=== PATIENT | male | born 1960 | race Caucasian/White ===

== ENCOUNTER → 2018-11-07 | Outpatient (CLI) | payer OTHER, BC ==
[~2018-11-07] VITALS: Ht 188 cm; Wt 119.0 kg
[~2018-11-07] MED LIST: AMBIEN 10 MG TA10 MG PO; ANDROGEL1.25 GM TD; CHLORPROMAZINE10 M1 PO; CRESTOR10 MG PO; EXCEDRIN CAPLE1 EACH PO; FENTANYL PA50 MCG/HR TP; FLEXERIL PO; HYDROCODONE-AP1 EAC6 PO; IBUPROFEN 200200 M1 PO; IBUPROFEN 800800 M1; LOTREL 10-40 M1 EACH PO; LOTREL 5-40 MG1 EACH PO; METHYLPHENIDATE30 MG PO; MULTI VITAMIN1 EACH PO; NABUMETONE 750750 M1 PO; NORCO 5-325 TA1 EACH PO; OXYCODONE HCL 55 MG PO; OXYCODONE HCL10 MG PO; PRILOSEC20 MG PO; VOLTAREN GEL 1100 G2 TOP; ZANAFLEX4 MG PO
--- NOTE | ~2018-11-07 | HPC ---
[facility] [place] [address] PAIN MANAGEMENT CONSULTATION Name: WAYNE ZURITA Room #: REG MALLORIE MayoKelseyBelkis#: [id number] Admission: 11/07/18 Attend Phys: Mansoor Merrill MD Discharge: Date of : 58 Report #: [id number] THIS REPORT FOR: //name// CC: Harriet Merrill DATE OF SERVICE: 11/07/2018 This is my first visit with the patient. CHIEF COMPLAINT: History of low back pain and weakness in the left leg. HISTORY OF PRESENT ILLNESS: The patient is a 58-year-old gentleman who has been referred to the Pain Clinic for evaluation. The patient states that he has had problems with his back in the past. He underwent epidural steroid injection in 2013. Also, he had epidural steroid injections in 2016. He did note incremental improvement from his baseline pain with those treatments. He notes that he is having pain in the low back area with pain radiating down into his left foot. He feels that there is an electric pulsation down into his leg and into his foot with numbness. He rates it as a 3 while sitting, rises to 11 towards the end of the day. Walking, standing, kneeling, bending, and lifting, all exacerbate his discomfort. Notes that the pain is somewhat helped with medications as well as with sitting. He has done low back stretches with physical therapy. States that he is walking as well. In the past, he has walked a number of miles back in 2016 up to 53 miles in 40 weeks. Over the last 2-3 months, he has noted a slow incremental increase in pain with weakness along the left side. He has not had back surgery. PAST MEDICAL HISTORY: Hypertension, coronary atherosclerosis with related left bundle branch block, history of systemic hypertension, and colon problems. PAST SURGICAL HISTORY: Cyst removal from head and neck. ALLERGIES: LIPITOR. MEDICATIONS: Voltaren gel 1% 4 times daily as needed to the upper extremity, ibuprofen 200 mg, Advil q. 4 hours p.r.n., OxyIR 5 mg 2 daily via primary care physician, tizanidine 4 mg t.i.d., amlodipine/benazepril 10/40, Prilosec 20 mg, aspirin, Excedrin caplets p.r.n. headache, testosterone 1.25 grams gel, Ambien 10 mg, calcium, Crestor 10 mg. SOCIAL HISTORY: He is a plant maintenance manager. REVIEW OF SYSTEMS: Generally good health. Decreased appetite, fatigue, weakness, headaches, hearing loss, chronic sinus problems, mouth sores, loss of appetite, nausea, recurrent headaches, numbness and tingling, insomnia, [facility] [address] [place] [address] PAIN MANAGEMENT CONSULTATION Name: WAYNE ZURITA Room #: REG MALLORIE Tariq#: [id number] Admission: 11/07/18 Attend Phys: Mansoor Merrill MD Discharge: Date of : 58 Report #: [id number] excessive thirst. LABORATORY AND DIAGNOSTIC DATA: Lumbar spine examination dated 12/19/2013, findings view of the lumbar spine demonstrate 5 [id number] lumbaralized vertebral bodies. No acute fractures, subluxations or osseous destruction. There is minimal anterolisthesis of the L5, possibly 1-2 mm. There is mild disk space narrowing at L1-L2, L2-L3, and L5-S1. Facet sclerosis is mild. Transverse process fracture is not identified. There is mild sclerosis of the SI joints. There is an equivocal 2 mm density underlying the left kidney, this could represent a calculus. Cardiac report dated 02/2000 reveals cardiac catheterization, normal left ventricular function identified with no more than 30% lesion at the determination of the first third of the left anterior descending coronary artery and a left coronary artery dominant system, a somewhat higher high-grade disease with a 60-70% lesion noted in the mid portion of a small right coronary artery, which supplies little, if any, to left ventricular myocardium. Final diagnoses: 1. Coronary artery atherosclerosis. 2. Rate related left bundle branch block. 3. History of systemic hypertension PAIN CLINIC ASSESSMENT AND PQRS: 1. Osteoarthritis: The patient is not being treated for osteoarthritis or rheumatoid arthritis. 2. Height 6 feet 2 inches, weight 262 pounds, BMI is 33.7. 3. Vital signs: Blood pressure 154/87, pulse 93, respiratory rate 16, room air saturation 96%. 4. Pain intensity: 3 while sitting, 8 in the evening at the end of the day. 5. Fall risk: The patient has not fallen in the last 3 months. 6. Blood thinner: The patient is not on a blood thinning medication. 7. Hypertension: The patient is being treated for hypertension. 8. Opioids greater than 6 weeks. 9. Risk assessment tool: Low for opioids. 10. Functional assessment tool. 11. Recreational drug use: The patient denies any recreational drugs. 12. Tobacco: The patient has never smoked. 13. Alcohol: The patient denies use of alcoholic beverages other than about 2 per week. PHYSICAL EXAMINATION: GENERAL: The patient is a well-developed, well-nourished, white male. Appears his stated age. He is alert and oriented x 3. His affect is appropriate. Speech is fluent. HEENT: Normocephalic, atraumatic. Extraocular eye muscles intact. Sclerae [address] [place] [address] PAIN MANAGEMENT CONSULTATION Name: WAYNE ZURITA Room #: REG [facility]up[facility].#: [id number] Admission: 11/07/18 Attend Phys: Mansoor Merrill MD Discharge: Date of : 58 Report #: [id number] nonicteric. Mucous membranes are moist. NECK: Without adenopathy or JVD. HEART: Regular rate without murmur. ABDOMEN: Nontender. Bowel sounds present. MUSCULOSKELETAL: Upper extremity muscle strength is judged to be 5/5 for the major muscle groups in the upper extremity. The patient is without significant scoliosis, kyphosis or lordosis. The patient has pain and discomfort and forward-bending to about 90 degrees caused some low back discomfort. Left and right rotation were not very problematic. Left and right lateral bending were not very problematic. Lumbar extension was not very problematic. The patient does have pain and discomfort on the left side. He notes that there is pain that is radiating down into the left L4-L5 dermatomal distribution with sensory changes and muscle weakness. The patient elects to proceed with an epidural steroid injection. Risks and benefits of the procedure were discussed. They could include but are not limited to infection, worsening of pain, no improvement in pain, bleeding, and the patient elects to proceed. IMPRESSION: 1. Lumbar radiculopathy at L4-L5 dermatomal distribution. 2. Hypertension. 3. Coronary atherosclerosis with related left bundle branch block. 4. History of systemic hypertension. 5. Colon problems RECOMMENDATIONS: We discussed treatment options with the patient. Risks and benefits of an epidural steroid injection were discussed. They include but are not limited to infection, worsening pain, no improvement in pain, nerve damage with paralysis, and the patient elects to proceed. PROCEDURE NOTE: The patient was taken to the procedure area. He was assisted in getting on the examination table. Fluoroscopy using anterior and posterior as well as lateral viewing were implemented. A 17-gauge Tuohy with loss of resistance technique was placed in the left L4-L5 interspace in the left lateral area. This area had been infiltrated with 0.25% bupivacaine with a 25-gauge needle to numb it. A pillow had been placed on the patient's abdomen to bolster and improve positioning. A total of 80 mg Depo-Medrol, 40 mg triamcinolone, and 2 mL of 0.25% bupivacaine was injected. The patient's pain decreased from 3 to 0 at the time of discharge. Total of 11 [place] [address] PAIN MANAGEMENT CONSULTATION Name: WAYNE ZURITA Room #: REG MALLORIE LedesmaBelkis#: [id number] Admission: 11/07/18 Attend Phys: Mansoor Merrill MD Discharge: Date of : 58 Report #: [id number] We would like to thank you for letting us participate in his care. We hope he continues to improve. By: [id number] Mansoor Merrill MD /hector
[2018-11-07 10:19] VITALS: BP 154/87
--- NOTE | 2018-11-07 10:30 | NUR ---
Pain Clinic Assessment: 1. History of Osteoarthritis: History of Rheumatoid Arthritis: 2. Height: 6 ft. 2 in. 188.0 cm. Weight: 262.4 lb. oz. 119.024 kg. Patient's BMI: 33.7 3. Vital Signs: BP: 154/87 Pulse: 93 Resp: 16 Temp: 02 Sat: 96 ECG Mon: 4. Pain Intensity: 3 SITTING, 8 EVENING 5. Fall Risk: Dizziness: N Needs help standing or walking: N Fallen in the last 3 months: N Fall risk comments: 6. Patient on Blood Thinner: None 7. History of Hypertension: N 8. Opioid Therapy greater than 6 weeks: Y Opiate Contract Signed: 9. Risk Assessment Tool Provided: LOW 10. Functional Assessment Tool: 11. Recreational Drug Use: Never Drug Type: Tobacco Use: Never Smoker Tobacco Type: Amount or Packs/day: How Many Years: Alcohol Use: No Frequency: Quant:
== END | disposition home or self-care (01) ==
LOC: PAIN 07:01
DX: M51.16 Intervertebral disc disorders with radiculopathy, lumbar region (principal); I10 Essential (primary) hypertension; I25.10 Atherosclerotic heart disease of native coronary artery without angina pectoris; I44.7 Left bundle-branch block, unspecified; Z98.890 Other specified postprocedural states; Z79.899 Other long term (current) drug therapy; Z79.82 Long term (current) use of aspirin; M43.16 Spondylolisthesis, lumbar region; G95.89 Other specified diseases of spinal cord

== ENCOUNTER → 2019-01-09 | Outpatient (CLI) | payer OTHER, BC ==
[~2019-01-09] VITALS: Ht 188 cm; Wt 116.5 kg
--- NOTE | ~2019-01-09 | HPC ---
[facility] [address] [place] [address] PAIN MANAGEMENT CONSULTATION Name: WAYNE ZURITA Room #: REG Nicolle Baltazar.#: [id number] Admission: 01/09/19 ������������������ Attend Phys: Mansoor Merrill MD Discharge: ������������������ Date of : 58 Report #: [id number] THIS REPORT FOR: //name// CC: Harriet Merrill DATE OF SERVICE: 01/09/2019 CHIEF COMPLAINT: "Here for another injection. It was helpful." HISTORY: The patient is a 58-year-old gentleman who has been followed in the Pain Clinic because of lumbar radiculopathy. He underwent an epidural steroid injection in 2013, in 2016, and gleaned benefits from these. He recently underwent an epidural steroid injection in the Pain Clinic. He noticed benefit from that. He has returned today with the thought of undergoing another epidural steroid injection to help control the pain and discomfort that he is experiencing. He describes it as tingling, sharp, aching, and has some numbness. Pain is exacerbated with walking, standing, kneeling, bending and lifting. He denies any bowel or bladder dysfunction. Denies any saddle numbness or tingling. He has had electrical pulsations down into his foot with numbness and that is less problematic now. ALLERGIES: LIPITOR. CURRENT MEDICATIONS: Voltaren gel 1% four times daily as needed to the upper extremity, ibuprofen 200 mg, Advil 4 mg p.r.n., OxyIR 5 mg two daily via primary care physician, tizanidine 4 mg t.i.d., amlodipine/ benazepril 10/40, Prilosec 20 mg, aspirin, Excedrin caplets p.r.n. headache, testosterone 1.25 grams gel, Ambien 10 mg, calcium, Crestor 10 mg. PAIN CLINIC ASSESSMENT/PQRS: 1. The patient is not being treated for rheumatoid arthritis or osteoarthritis. 2. Height 6 feet 2 inches, weight 256 pounds, BMI is 33. 3. Vital signs: Blood pressure 136/88, pulse is 80, respiratory rate 20, room air saturation 98%. 4. Pain intensity: 3/10 with sitting and 7/10 by onset of evening. 5. Fall history: The patient has not fallen in the last 3 months. 6. Blood thinner: The patient is not on a blood thinning medication. 7. Hypertension: The patient is not being treated for hypertension. 8. Opioids greater than 6 weeks: The patient receives medications from his primary. 9. Risk assessment tool: Low for opioid use. 10. Functional assessment tool. 11. Recreational drug use: The patient denies. 12. Tobacco: ____ use of tobacco. 13. Alcohol: The patient denies use of alcoholic beverages. [facility] [address] [place] [address] PAIN MANAGEMENT CONSULTATION Name: WAYNE ZURITA Room #: REG CL Chandni#: [id number] Admission: 01/09/19 ������������������ Attend Phys: Mansoor Merrill MD Discharge: ������������������ Date of : 58 Report #: [id number] PHYSICAL EXAMINATION: GENERAL: The patient is a well-developed, well-nourished white male. He appears his stated age. He is alert and oriented x 3. Affect is appropriate. Speech is fluent. HEENT: Normocephalic, atraumatic. Extraocular eye muscles intact. Sclerae nonicteric. Mucous membranes are moist. NECK: Without adenopathy or JVD. MUSCULOSKELETAL: Without significant scoliosis, kyphosis, or lordosis. Upper extremity muscle strength 5/5. The patient has pain and discomfort in the lower portion of his back. The pain is radiating down at the L4-L5 dermatomal distribution with sensory changes and muscle weakness. He would like to proceed with an epidural steroid injection. IMPRESSION: 1. Lumbar radiculopathy, L4-L5 dermatomal distribution. 2. Hypertension. 3. Coronary atherosclerotic disease with left bundle-branch block. 4. History of systemic hypertension. 5. Colon problems. RECOMMENDATIONS: We discussed treatment options with the patient. Risks and benefits of an epidural steroid injection were again reviewed. Possible complications of the procedure which could include but are not limited to infection, worsening of pain, no improvement in pain, nerve damage, paralysis were reviewed, and the patient elects to proceed. PROCEDURE NOTE: The patient was taken to the procedure area. He was assisted in getting on the examination table. A pillow was placed under his abdomen to bolster and improve positioning. Fluoroscopy using anterior, posterior as well as lateral viewing implemented. The patient's back was sterilely prepped at the L4-L5 area. A 0.25% bupivacaine was infiltrated using a 25-gauge needle. After this area had been numbed, a 17-gauge Tuohy with loss of resistance technique was used to gain access to the epidural space. There was no CSF, heme or paresthesia. A total of 80 mg Depo-Medrol, 40 mg triamcinolone and 2 mL of 0.25% bupivacaine was injected. The patient tolerated the procedure well. There were no complications. He remained in the Pain Clinic for an appropriate amount of time. His pain decreased to 2-3 at the time of discharge. A total of 12 seconds fluoroscopy time was used. We would like to thank you for letting us participate in his care. We hope he continues to improve. ��������������������������������������������� ���������������������������������������� By: ��������������������������������������������� [id number] Mansoor Merrill MD /hector
[2019-01-09 08:11] VITALS: BP 136/88
--- NOTE | 2019-01-09 08:19 | NUR ---
Pain Clinic Assessment: 1. History of Osteoarthritis: History of Rheumatoid Arthritis: 2. Height: 6 ft. 2 in. 188.0 cm. Weight: 256.8 lb. oz. 116.484 kg. Patient's BMI: 33.0 3. Vital Signs: BP: 136/88 Pulse: 80 Resp: 20 Temp: 02 Sat: 98 ECG Mon: 4. Pain Intensity: 3 SITTING, 7 EVENING 5. Fall Risk: Dizziness: N Needs help standing or walking: N Fallen in the last 3 months: N Fall risk comments: 6. Patient on Blood Thinner: None 7. History of Hypertension: N 8. Opioid Therapy greater than 6 weeks: N Opiate Contract Signed: 9. Risk Assessment Tool Provided: LOW 10. Functional Assessment Tool: 11. Recreational Drug Use: Never Drug Type: Tobacco Use: Never Smoker Tobacco Type: Amount or Packs/day: How Many Years: Alcohol Use: No Frequency: Quant:
== END | disposition home or self-care (01) ==
LOC: PAIN 06:50
DX: M54.16 Radiculopathy, lumbar region (principal); G89.29 Other chronic pain; I10 Essential (primary) hypertension; I25.10 Atherosclerotic heart disease of native coronary artery without angina pectoris; Z87.19 Personal history of other diseases of the digestive system; Z88.8 Allergy status to other drugs, medicaments and biological substances; Z79.82 Long term (current) use of aspirin; Z79.899 Other long term (current) drug therapy; Z98.890 Other specified postprocedural states; Z79.891 Long term (current) use of opiate analgesic

== ENCOUNTER → 2019-02-20 | Outpatient (CLI) | payer OTHER, BC ==
[~2019-02-20] VITALS: Ht 188 cm; Wt 114.9 kg
[2019-02-20 08:17] VITALS: BP 133/80
--- NOTE | 2019-02-20 08:19 | NUR ---
Pain Clinic Assessment: 1. History of Osteoarthritis: History of Rheumatoid Arthritis: 2. Height: 6 ft. 2 in. 188.0 cm. Weight: 253.4 lb. oz. 114.942 kg. Patient's BMI: 32.5 3. Vital Signs: BP: 133/80 Pulse: 88 Resp: 16 Temp: 02 Sat: 97 ECG Mon: 4. Pain Intensity: 2 5. Fall Risk: Dizziness: N Needs help standing or walking: N Fallen in the last 3 months: N Fall risk comments: 6. Patient on Blood Thinner: None 7. History of Hypertension: N 8. Opioid Therapy greater than 6 weeks: N Opiate Contract Signed: 9. Risk Assessment Tool Provided: LOW 10. Functional Assessment Tool: 11. Recreational Drug Use: Never Drug Type: Tobacco Use: Never Smoker Tobacco Type: Amount or Packs/day: How Many Years: Alcohol Use: Yes Frequency: Special Occasions Quant:
--- NOTE | 2019-02-22 16:10 | HPC ---
[facility] [place] [address] [address] [place] [address] PAIN MANAGEMENT CONSULTATION Name: WAYNE ZURITA Room #: REG MALLORIE LedesmaBelkis#: [id number] Admission: 02/20/19 ������������������ Attend Phys: Mansoor Merrill MD Discharge: ������������������ Date of : 58 Report #: [id number] THIS REPORT FOR: //name// CC: Harriet Merrill DATE OF SERVICE: 02/20/2019 PRIMARY CARE PHYSICIAN: Dr. Harriet Antonio. CHIEF COMPLAINT: "Back and leg pain. I would like to get another epidural steroid injection." HISTORY: The patient is a 58-year-old gentleman who has been seen in the pain clinic because of lumbar radiculopathy. He has undergone an epidural steroid injection. He gleaned greater than 50% improvement. He feels that the pain in December was primarily in the anterior portion of his leg. The injection in the L5/L4 area was helpful with that pain that is diminished significantly. He now notes a worsening of the pain in the sciatic area. Pain radiating down into his leg is more problematic. Notes that when he stands or does activities, there is an increased pain and discomfort in the L5-S1 area. Notes that he is experiencing some numbness after sitting. He has returned today with a desire to undergo an epidural steroid injection to help continue to quell the pain, which he has been experiencing. ALLERGIES: LIPITOR. CURRENT MEDICATIONS: Voltaren gel 1% 4 times daily as needed to the upper extremity. Ibuprofen 200 mg, Advil 400 mg p.r.n., OxyIR 5 mg 2 tablets daily provided via the primary care physician. Tizanidine 4 mg t.i.d., amlodipine/benazepril 10/40, Prilosec 20 mg, aspirin, Excedrin caplets p.r.n., this is used for headaches, testosterone 1.25 g gel, Ambien 10 mg, calcium, and Crestor 10 mg. PAIN CLINIC ASSESSMENT/PQRS: 1. The patient is not being treated for rheumatoid arthritis. He has not been treated for osteoarthritis. 2. Height 6 feet 2 inches, weight 253 pounds, BMI is 32.5. 3. VITAL SIGNS: Blood pressure 133/80, pulse 88, respiratory rate 16, room air saturation is 97%. 4. Pain intensity 11/04. 5. Fall history: The patient has not fallen in the last 3 months. 6. Blood thinner. The patient is not on a blood thinning medication. 7. Hypertension. The patient is not being treated for hypertension. 8. Opioids. The patient is receiving his medications from one source, primary physician. [address] [address] PAIN MANAGEMENT CONSULTATION Name: PARMINDERWAYNE MARIA M Room #: REG MALLORIE Tariq#: [id number] Admission: 02/20/19 ������������������ Attend Phys: Mansoor Merrill MD Discharge: ������������������ Date of : 58 Report #: [id number] 9. Risk assessment tool, low for opioid use. 10. Functional assessment tool. 11. Recreational drug use. The patient denies use of recreational drugs. 12. Tobacco: The patient has never smoked. 13. Alcohol: The patient occasionally drinks alcoholic beverages. PHYSICAL EXAMINATION: GENERAL: The patient is a well-developed, well-nourished white male. Appears his stated age. He is alert and oriented x 3. Affect is appropriate. Speech is fluent. HEENT: Normocephalic, atraumatic. Extraocular eye muscles intact. Sclerae nonicteric. Mucous membranes are moist. NECK: Without adenopathy or JVD. HEART: Regular rate. ABDOMEN: Nontender. Bowel sounds present. EXTREMITIES: The patient without significant scoliosis, kyphosis or lordosis. Upper extremity muscle strength judged to be 5/5 for the major muscle groups in the upper extremity. Lower extremity, the patient has pain and discomfort radiating down in the L5-S1 dermatomal distribution. Did have pain that radiated down in the L4-L5 dermatomal distribution. This is improved about 90% since the last injection. The patient has some weakness and perception of sensory changes in the L5-S1 dermatomal distribution of the left and right leg. IMPRESSION: 1. Lumbar radiculopathy with L5-S1 dermatomal distribution with sensory changes perception of weakness and pain and tingling in this dermatomal distribution. 2. About 90% improvement in pain in the L4-L5 dermatomal distribution after the last epidural steroid injection. 3. Hypertension. 4. Coronary artery disease, left bundle branch block. 5. History of systemic hypertension. 6. Colon problems. RECOMMENDATIONS: We discussed treatment options with the patient. Risks and benefits of an epidural steroid injection were again discussed. At this juncture, the patient will return after he has been granted permission by precertification from his insurance. At that time, he will then undergo an epidural steroid injection in the L5-S1 area to help decrease the pain and discomfort, which is lingering with sensory changes, muscle weakness and pain in this dermatomal distribution. [facility] [address] [place] [address] PAIN MANAGEMENT CONSULTATION Name: WAYNE ZURITA Room #: REG MALLORIE Tariq#: [id number] Admission: 02/20/19 ������������������ Attend Phys: Mansoor Merrill MD Discharge: ������������������ Date of : 58 Report #: [id number] We would like to thank you for letting us participate in his care. We hope he continues to improve. ��������������������������������������������� <ELECTRONICALLY SIGNED> ���������������������������������������� By: Mansoor Merrill MD ��������������������������������������������� 02/22/19 1610 [id number] Mansoor Merrill MD /[facility]
== END ==
LOC: PAIN 06:42
DX: M54.16 Radiculopathy, lumbar region (principal); I25.10 Atherosclerotic heart disease of native coronary artery without angina pectoris; I44.7 Left bundle-branch block, unspecified

== ENCOUNTER → 2019-02-27 | Outpatient (CLI) | payer OTHER, BC ==
[~2019-02-27] VITALS: Ht 188 cm; Wt 114.8 kg
--- NOTE | ~2019-02-27 | HPC ---
[facility] [place] [address] PAIN MANAGEMENT CONSULTATION Name: WAYNE ZURITA Room #: REG MALLORIE Baltazar.#: [id number] Admission: 02/27/19 ������������������ Attend Phys: Mansoor Merrill MD Discharge: ������������������ Date of : 58 Report #: [id number] THIS REPORT FOR: //name// CC: Harriet Merrill DATE OF SERVICE: 02/27/2019 FOLLOWUP COMPLAINT: Back and leg pain. HISTORY: The patient is a 58-year-old gentleman, who has been seen in the pain clinic. He suffers from lumbar radiculopathy. Epidural steroid injections in the past have been beneficial. He is now having pain that has worsened. It continues to radiate down into his low back and involving particularly the left leg. It involves his back of the left leg and in the area there is tingling, sharp, aching discomfort with numbness. He rates it as a 3/10. Walking, standing, kneeling, bending, and lifting exacerbate the discomfort. He feels that use of medications as well as sitting are helpful. He has returned to the pain clinic today with a desire to undergo an epidural injection. CURRENT MEDICATIONS: Voltaren gel 1% 4 times daily to the upper extremity, ibuprofen 200 mg, Advil 400 mg p.r.n., OxyIR 5 mg 2 tablets daily, tizanidine 4 mg t.i.d., amlodipine/benazepril 10/40, Prilosec 20 mg, aspirin 81 mg, Excedrin caplets for headache, testosterone 1.25 grams gel, Ambien 10 mg, calcium, and Crestor 10 mg. ALLERGIES: LIPITOR. PAIN CLINIC ASSESSMENT AND PQRS: 1. The patient is not being treated for rheumatoid arthritis. He has not been treated for osteoarthritis. 2. Pain intensity is 3/10. 3. Fall history: The patient has not fallen in the last 3 months. 4. Blood thinner. The patient is not being treated with a blood thinning medication. 5. Hypertension. The patient is not being treated for hypertension. 6. Opioids greater than 6 weeks. The patient is not receiving opioid medication on a long-term basis. 7. Risk assessment tool, low for opioid use. 8. Functional assessment tool. 9. Recreational drug use. The patient denies. 10. Tobacco: The patient has never smoked. 11. Alcohol: The patient occasionally drinks an alcoholic beverage. PHYSICAL EXAMINATION: GENERAL: The patient is a well-developed, well-nourished [place] [address] PAIN MANAGEMENT CONSULTATION Name: WAYNE ZURITA Room #: REG [facility]#: [id number] Admission: 02/27/19 ������������������ Attend Phys: Mansoor Merrill MD Discharge: ������������������ Date of : 58 Report #: [id number] appears his stated age. He is alert and oriented x 3. His affect is appropriate. Speech is fluent. Height is 6 feet 2 inches, weight is 253 pounds, and BMI is 32.2. VITAL SIGNS: Blood pressure is 130/84, pulse is 90, respiratory rate is 14, and room air saturation is 97%. HEENT: Normocephalic, atraumatic. Extraocular eye muscles intact. Sclerae nonicteric. NECK: Without adenopathy or JVD. HEART: Regular rate. ABDOMEN: Nontender. Bowel sounds present. EXTREMITIES: Upper extremity muscle strength is judged to be 5/5 for the major muscle groups. The patient is without significant scoliosis, kyphosis, or lordosis. He complains of pain and discomfort, particularly in the low back area with pain that is radiating down in the L5-S1 dermatomal distribution, particularly on the left side and has a positive straight leg raise on the left. IMPRESSION: 1. Lumbar radiculopathy, L5-S1 dermatomal distribution with sensory changes, weakness, pain, and tingling in the dermatomal distribution. 2. The patient has undergone improvement in the L4-L5 dermatomal area with an epidural steroid injection. 3. Hypertension. 4. Coronary artery disease, left bundle branch block. 5. History of hypertension. 6. Colon problems. RECOMMENDATIONS: We have discussed treatment options with the patient. Risks and benefits of an epidural steroid injection were again discussed. They include but are not limited to infection, increased muscle soreness, headache, bleeding, worsening of pain, no improvement in pain, spinal trauma with paralysis. The patient elects to proceed. PROCEDURE NOTE: The patient was taken to the procedure area. He was then assisted in getting on the examination table. A pillow was placed under his abdomen to bolster and improve positioning. Anterior, posterior as well as lateral viewing were implemented. The patient's back was sterilely prepped with a Betadine solution at the L4-L5 area. A 0.25% of bupivacaine using a 25-gauge needle was then advanced in the midline approach near the directed toward the left paramedian area. Aspiration was negative. A 17-gauge Tuohy with loss of resistance technique was used to gain access to the epidural space. There was no CSF, heme, or paresthesia. A total of 80 mg of Depo-Medrol, 40 mg of triamcinolone, and 2 mL of 0.25% bupivacaine was injected. The patient tolerated the procedure well. There were no complications. He remained in the pain clinic for an appropriate amount of time after he had been injected. A total of approximately 10 seconds fluoroscopy time was used. The patient's pain score was 0 at the time of discharge. He will follow up in the future as [address] [address] PAIN MANAGEMENT CONSULTATION Name: PARMINDERWAYNE FRANZ Room #: REG [facility].#: [id number] Admission: 02/27/19 ������������������ Attend Phys: Mansoor Merrill MD Discharge: ������������������ Date of : 58 Report #: [id number] needed. We would like to thank you for letting us to participate in his care. We hope he continues to improve. ��������������������������������������������� ���������������������������������������� By: ��������������������������������������������� [id number] Mansoor Merrill MD /TIERRA
[2019-02-27 08:08] VITALS: BP 130/84
--- NOTE | 2019-02-27 08:09 | NUR ---
Pain Clinic Assessment: 1. History of Osteoarthritis: DENIES History of Rheumatoid Arthritis: DENIES 2. Height: 6 ft. 2 in. 188.0 cm. Weight: 253.0 lb. oz. 114.760 kg. Patient's BMI: 32.5 3. Vital Signs: BP: 130/84 Pulse: 90 Resp: 14 Temp: 02 Sat: 97 ECG Mon: 4. Pain Intensity: 3 5. Fall Risk: Dizziness: N Needs help standing or walking: N Fallen in the last 3 months: N Fall risk comments: 6. Patient on Blood Thinner: None 7. History of Hypertension: N 8. Opioid Therapy greater than 6 weeks: N Opiate Contract Signed: 9. Risk Assessment Tool Provided: LOW 10. Functional Assessment Tool: 11. Recreational Drug Use: Never Drug Type: Tobacco Use: Never Smoker Tobacco Type: Amount or Packs/day: How Many Years: Alcohol Use: Yes Frequency: Weekly Quant:
== END | disposition home or self-care (01) ==
LOC: PAIN 06:44
DX: M54.16 Radiculopathy, lumbar region (principal); G89.29 Other chronic pain; I10 Essential (primary) hypertension; I25.10 Atherosclerotic heart disease of native coronary artery without angina pectoris; K63.9 Disease of intestine, unspecified; Z79.82 Long term (current) use of aspirin; Z79.899 Other long term (current) drug therapy; Z98.890 Other specified postprocedural states; Z88.8 Allergy status to other drugs, medicaments and biological substances

== ENCOUNTER → 2019-03-22 | Outpatient (CLI) | payer OTHER, BC ==
[~2019-03-22] VITALS: Ht 188 cm; Wt 117.0 kg
--- NOTE | ~2019-03-22 | HPC ---
[facility] [address] [place] [address] PAIN MANAGEMENT CONSULTATION Name: WAYNE ZURITA Room #: REG MALLORIE Chandni#: [id number] Admission: 03/22/19 ������������������ Attend Phys: Mansoor Merrill MD Discharge: ������������������ Date of : 58 Report #: [id number] THIS REPORT FOR: //name// CC: Harriet Merrill DATE OF SERVICE: 03/22/2019 CHIEF COMPLAINT: "Here for medication renewal." HISTORY: The patient is a 58-year-old gentleman who has been followed in the pain clinic. As you recall, he suffers from lumbar radiculopathy. Epidural steroid injections have been beneficial. He underwent an epidural steroid injection at the last visit. He returns today indicating that his pain continues to be improved as a result of the injection. He continues to have some pain and discomfort. He would like to have his medications renewed. He is also here indicating that he would like to proceed at the earliest occasion with another epidural steroid injection. Continues to have some low back pain as well as pain down the left leg. Notes continued tingling, sharp sensation, aching with numbness. Rates it as a 3/10 today. Pain is exacerbated with walking, standing, kneeling, bending, lifting, feels his medications as well as sitting can be helpful. Had no complications from the last injection. ALLERGIES: LIPITOR. CURRENT MEDICATIONS: Voltaren gel 1% 4 times daily to the upper extremity, ibuprofen 200 mg, Advil 400 mg p.r.n., OxyIR 5 mg 2 tablets daily, tizanidine 4 mg t.i.d., amlodipine/benazepril 10/40, Prilosec 20 mg, aspirin 81 mg, Excedrin caplets for headache, testosterone 1.25 grams gel, Ambien 10 mg, calcium, Crestor 10 mg. PAIN CLINIC ASSESSMENT AND PQRS: 1. The patient is not being treated for rheumatoid arthritis. He is not being treated for osteoarthritis. 2. Pain intensity 12/02. 3. Fall history: The patient has not fallen since we saw him last. 4. Vital Signs: Blood pressure 129/79, pulse 82, respiratory rate 16, room air saturation 98%. 5. Pain intensity 12/02. 6. Fall history: The patient has not fallen since we saw him last. 7. Blood thinner. The patient is not on a blood thinning medication. 8. Hypertension. The patient is not being treated for hypertension. 9. Opioids greater than 6 weeks. He is receiving opioid medication. 10. Risk assessment tool: Low for opioid use. 11. Functional assessment tool. 12. Recreational drug use. The patient denies use of recreational drugs. [address] [address] PAIN MANAGEMENT CONSULTATION Name: PARMINDERWAYNE Room #: REG CLNicolle Tariq#: [id number] Admission: 03/22/19 ������������������ Attend Phys: Mansoor Merrill MD Discharge: ������������������ Date of : 58 Report #: [id number] 13. Tobacco: The patient has never smoked. 14. Alcohol: The patient occasionally drinks alcoholic beverages. PHYSICAL EXAMINATION: GENERAL: The patient is a well-developed, well-nourished white male. He appears his stated age. He is alert and oriented x 3. His affect is appropriate. Speech is fluent. HEENT: Normocephalic, atraumatic. Extraocular eye muscles intact. Sclerae nonicteric. Mucous membranes moist. NECK: Without adenopathy or JVD. HEART: Regular rate. ABDOMEN: Nontender. Bowel sounds present. EXTREMITIES: Upper extremity muscle strength judged to be 5/5 for the major muscle groups in the upper extremity. The patient was without significant scoliosis, kyphosis or lordosis. The patient complains of some pain and discomfort in the lower portion of his back with pain that is radiating down the L5-S1 dermatomal distribution, particularly on the left side. Has some ____ of a positive straight leg raise on the left. IMPRESSION: 1. Lumbar radiculopathy and history of L5-S1 dermatomal distribution and sensory changes with weakness and tingling. 2. The patient has undergone L4-L5 dermatomal epidural steroid injections with benefit. 3. Hypertension. 4. Coronary artery disease. 5. Left bundle branch block. 6. History of hypertension. 7. Colon problems. RECOMMENDATIONS: We discussed the treatment options with the patient. At this juncture, it appears that he would be able to undergo another epidural injection in about April. At this juncture, the patient would like to have his medications renewed in the interim. A script for OxyIR 5 mg p.o. q.i.d. have been written. We have discussed the problems with opioid medications. Long-term use of opioid medications can be less effective because of development of tolerance. We have also discussed the news and media findings of opioids. About 70,000 patients last year of overdose result of medications. We have explained to the patient that we will provide him with the medication. At this point, he should take it as prescribed. Hopefully, he will continue to improve. After his insurance precerted him, he will then return to the pain clinic at which time he will then undergo an epidural steroid injection. He has gleaned benefits from the injection in the past and found them beneficial. [address] [address] PAIN MANAGEMENT CONSULTATION Name: WAYNE ZURITA Room #: REG MALLORIE Tariq#: [id number] Admission: 03/22/19 ������������������ Attend Phys: Mansoor Merrill MD Discharge: ������������������ Date of : 58 Report #: [id number] We would like to thank you for letting us participate in his care. We hope he continues to improve. ��������������������������������������������� ���������������������������������������� By: ��������������������������������������������� [id number] Mansoor Merrill MD /PMT
[2019-03-22 08:18] VITALS: BP 129/79
--- NOTE | 2019-03-22 08:34 | NUR ---
Pain Clinic Assessment: 1. History of Osteoarthritis: DENIES History of Rheumatoid Arthritis: DENIES 2. Height: 6 ft. 2 in. 188.0 cm. Weight: 258.0 lb. oz. 117.028 kg. Patient's BMI: 33.1 3. Vital Signs: BP: 129/79 Pulse: 82 Resp: 16 Temp: 02 Sat: 98 ECG Mon: 4. Pain Intensity: 3 5. Fall Risk: Dizziness: N Needs help standing or walking: N Fallen in the last 3 months: N Fall risk comments: 6. Patient on Blood Thinner: None 7. History of Hypertension: N 8. Opioid Therapy greater than 6 weeks: N Opiate Contract Signed: 9. Risk Assessment Tool Provided: LOW 10. Functional Assessment Tool: 11. Recreational Drug Use: Never Drug Type: Tobacco Use: Never Smoker Tobacco Type: Amount or Packs/day: How Many Years: Alcohol Use: Yes Frequency: Special Occasions Quant:
== END ==
LOC: PAIN 06:45
DX: Z76.0 Encounter for issue of repeat prescription (principal); M54.16 Radiculopathy, lumbar region; I25.10 Atherosclerotic heart disease of native coronary artery without angina pectoris; Z88.8 Allergy status to other drugs, medicaments and biological substances; Z79.899 Other long term (current) drug therapy; Z79.891 Long term (current) use of opiate analgesic

== ENCOUNTER → 2019-05-17 | Outpatient (CLI) | payer OTHER, BC ==
[~2019-05-17] VITALS: Ht 188 cm; Wt 118.8 kg
--- NOTE | ~2019-05-17 | HPC ---
[facility] [place] [address] PAIN MANAGEMENT CONSULTATION Name: WAYNE ZURITA Room #: REG MALLORIE Chandni#: [id number] Admission: 05/17/19 Attend Phys: Mansoor Merrill MD Discharge: Date of : 58 Report #: [id number] THIS REPORT FOR: //name// CC: Harriet Merrill DATE OF SERVICE: 05/17/2019 CHIEF COMPLAINT: Here for another epidural steroid injection. They have been helpful. HISTORY: The patient is a 58-year-old gentleman who has been followed in the pain clinic because of chronic lumbar radicular pain. He has undergone epidural steroid injections and noticed improvement. He has returned today. His insurance company has granted him the ability to undergo another injection. The possible complications of the procedure were discussed. They could include infection, worsening of pain, no improvement in pain, bleeding, headache and the patient elects to proceed. ALLERGIES: LIPITOR. CURRENT MEDICATIONS: Voltaren gel 1% 4 times daily to the upper extremity, ibuprofen 200 mg, Advil 400 mg p.r.n., OxyIR 5 mg 2 tablets daily, tizanidine 4 mg t.i.d., amlodipine/benazepril 10/40, Prilosec 20 mg, aspirin 81 mg, Excedrin caplets for headache, testosterone 1.25 grams gel, Ambien 10 mg, calcium, and Crestor 10 mg. PAIN CLINIC ASSESSMENT AND PQRS: 1. The patient is not being treated for rheumatoid arthritis. He is not being treated for osteoarthritis. 2. Pain intensity is 3/10. 3. Height 6 feet 2 inches, weight 261 pounds, BMI is 33.1. 4. Vital signs: Blood pressure 140/84, pulse 79, respiratory rate 18, room air saturation is 100%. 5. Fall history: The patient has not fallen in the last 3 months. 6. Blood thinner. The patient is not on a blood thinning medication. 7. Hypertension. The patient is not being treated for hypertension. 8. Opioids greater than 6 weeks. The patient receives medications from one source. 9. Risk assessment tool, low for opioid use. 10. Functional assessment tool. 11. Recreational drug use. The patient denies. 12. Tobacco: The patient has never smoked. 13. Alcohol: The patient drinks 3-4 alcoholic beverages per week. PHYSICAL EXAMINATION: [facility] [address] [place] [address] PAIN MANAGEMENT CONSULTATION Name: WAYNE ZURITA Room #: REG MALLORIE LedesmaBelkis#: [id number] Admission: 05/17/19 Attend Phys: Mansoor Merrill MD Discharge: Date of : 58 Report #: [id number] GENERAL: The patient is a well-developed, well-nourished white male. Appears his stated age. He is alert and oriented x 3. His affect is appropriate. Speech is fluent. HEENT: Normocephalic, atraumatic. Extraocular eye muscles intact. Sclerae nonicteric. Mucous membranes are moist. NECK: Without adenopathy or JVD. MUSCULOSKELETAL: Upper extremity muscle strength judged to be 5/5 for the major muscle groups in the upper extremity. The patient without significant scoliosis, kyphosis, or lordosis. The patient has pain and discomfort in the lower portion of his back with pain that is radiating down into the L5-S1 dermatomal distribution on the left. Positive straight leg raise on the left. IMPRESSION: 1. Lumbar radiculopathy with history of L5-S1 dermatomal distribution and sensory changes with weakness and tingling. 2. History of L4-L5 dermatomal epidural injections with benefit in the past. 3. Hypertension. 4. Coronary artery disease. 5. Left bundle branch block. 6. History of hypertension. 7. Colon problems. RECOMMENDATIONS: We discussed treatment options with the patient. Risks and benefits of an epidural steroid injection were again reviewed. They include but are not limited to infection, worsening pain, no improvement in pain, worse being of muscle soreness. Possible nerve damage and the patient elects to proceed. PROCEDURE NOTE: The patient was taken to the procedure area. He was then assisted in getting on the examination table. His back was sterilely prepped with a Betadine solution. A pillow had been placed under the abdomen to bolster and improve positioning. Fluoroscopy using anterior and posterior viewing were undertaken. After the back, had been sterilely prepped with a Betadine solution. A 0.25% bupivacaine was infiltrated using a 25-gauge needle at the L5-S1 area using a midline approach. A 17-gauge Tuohy with loss of resistance technique was used to gain access to the epidural space after this area had been anesthetized. A left paramedian approach was undertaken. Aspiration was negative. A total of 80 mg Depo-Medrol, 40 mg triamcinolone and 2 mL of 0.25% bupivacaine was injected. The patient tolerated the procedure well. He remained in the pain clinic for an appropriate amount of time. He will follow up in the future as needed. [address] [address] PAIN MANAGEMENT CONSULTATION Name: WAYNE ZURITA Room #: REG MALLORIE LedesmaBelkis#: [id number] Admission: 05/17/19 Attend Phys: Mansoor Merrill MD Discharge: Date of : 58 Report #: [id number] We would like to thank you for letting us participate in his care. We hope he continues to improve. By: [id number] Mansoor Merrill MD /nt
[2019-05-17 08:03] VITALS: BP 140/84
--- NOTE | 2019-05-17 08:09 | NUR ---
Pain Clinic Assessment: 1. History of Osteoarthritis: DENIES History of Rheumatoid Arthritis: DENIES 2. Height: 6 ft. 2 in. 188.0 cm. Weight: 261.8 lb. oz. 118.752 kg. Patient's BMI: 33.6 3. Vital Signs: BP: 140/84 Pulse: 79 Resp: 18 Temp: 02 Sat: 100 ECG Mon: 4. Pain Intensity: 3 5. Fall Risk: Dizziness: N Needs help standing or walking: N Fallen in the last 3 months: N Fall risk comments: 6. Patient on Blood Thinner: None 7. History of Hypertension: N 8. Opioid Therapy greater than 6 weeks: N Opiate Contract Signed: 9. Risk Assessment Tool Provided: LOW 10. Functional Assessment Tool: 11. Recreational Drug Use: Never Drug Type: Tobacco Use: Never Smoker Tobacco Type: Amount or Packs/day: How Many Years: Alcohol Use: Yes Frequency: Weekly Quant: 3-4
== END | disposition home or self-care (01) ==
LOC: PAIN 06:41
DX: M54.16 Radiculopathy, lumbar region (principal)

== ENCOUNTER → 2019-06-12 | Outpatient (CLI) | payer OTHER, BC ==
[~2019-06-12] VITALS: Ht 188 cm; Wt 115.5 kg
[~2019-06-12] MED LIST changes: +MEDROLDOSEPACK PO
[2019-06-12 09:21] VITALS: BP 135/79
--- NOTE | 2019-06-12 09:30 | NUR ---
Pain Clinic Assessment: 1. History of Osteoarthritis: DENIES History of Rheumatoid Arthritis: DENIES 2. Height: 6 ft. 2 in. 188.0 cm. Weight: 254.6 lb. oz. 115.486 kg. Patient's BMI: 32.7 3. Vital Signs: BP: 135/79 Pulse: 99 Resp: 16 Temp: 02 Sat: 97 ECG Mon: 4. Pain Intensity: 3NOW, 7 THROUGHOUT DAY 5. Fall Risk: Dizziness: N Needs help standing or walking: N Fallen in the last 3 months: N Fall risk comments: 6. Patient on Blood Thinner: None 7. History of Hypertension: N 8. Opioid Therapy greater than 6 weeks: N Opiate Contract Signed: 9. Risk Assessment Tool Provided: LOW 10. Functional Assessment Tool: 11. Recreational Drug Use: Never Drug Type: Tobacco Use: Never Smoker Tobacco Type: Amount or Packs/day: How Many Years: Alcohol Use: Yes Frequency: Weekly Quant: 4
--- NOTE | 2019-06-21 15:10 | HPC ---
[facility] [place] [address] PAIN MANAGEMENT CONSULTATION Name: WAYNE ZURITA Room #: REG MALLORIE Chandni#: [id number] Admission: 06/12/19 Attend Phys: Mansoor Merrill MD Discharge: Date of : 58 Report #: [id number] THIS REPORT FOR: //name// CC: Harriet Merrill DATE OF SERVICE: 06/12/2019 HISTORY: The patient is a 58-year-old gentleman who has been followed in the pain clinic. He suffers from chronic pain involving pain down in the right lower leg. He has undergone epidural steroid injections in the past and found them beneficial. At this point, he has noticed that his pain has continued to increase. He is having pain in the lower portion of his back, which radiates down the lateral portion of his thigh and calf. There is a burning sensation. He is experiencing some sharp electrical impulses. He has some perception of weakness in his leg. He has increased pain when he straightens his leg and bends over. Has continued to do stretching and other activities at home. ALLERGIES: LIPITOR. CURRENT MEDICATIONS: Voltaren gel 1% 4 times daily to the upper extremity, ibuprofen 200 mg, Advil 400 mg p.r.n., OxyIR 5 mg 2 tablets daily, tizanidine 4 mg t.i.d., amlodipine/benazepril 10/40, Prilosec 20 mg, aspirin 81 mg, Excedrin caplets for headache, testosterone 1.25 grams gel, Ambien 10 mg, calcium, and Crestor 10 mg. PAIN CLINIC ASSESSMENT AND PQRS: 1. The patient is not being treated for rheumatoid arthritis. He is not being treated for osteoarthritis. 2. Pain intensity is 3/10 now and increases to 7/10 throughout the day. 3. Height 6 feet 2 inches, weight 254 pounds, BMI is 32.7. 4. Vital signs: Blood pressure 135/79, pulse 99, respiratory rate 16, room air saturation is 97%. 5. Fall risk. The patient has not fallen in the last 3 months. 6. Blood thinner. The patient is not on a blood thinning medication. 7. Hypertension. The patient is not being treated for hypertension. 8. Opioids greater than 6 weeks. 9. Risk assessment tool, low for opioid use. 10. Functional assessment tool. 11. Recreational drug use. The patient denies. 12. Tobacco: The patient has never smoked. 13. Alcohol: The patient does drink about 4 alcoholic beverages during the week. PHYSICAL EXAMINATION: GENERAL: The patient is a well-developed, well-nourished white male. Appears [facility] [address] [place] [address] PAIN MANAGEMENT CONSULTATION Name: WAYNE ZURITA Room #: REG MALLORIE Tariq#: [id number] Admission: 06/12/19 Attend Phys: Mansoor Merrill MD Discharge: Date of : 58 Report #: [id number] his stated age. He is alert and oriented x 3. His affect is appropriate. Speech is fluent. HEENT: Normocephalic, atraumatic. Extraocular eye muscles intact. Sclerae nonicteric. Mucous membranes are moist. NECK: Without adenopathy or JVD. HEART: Regular rate. ABDOMEN: Nontender. Bowel sounds present. EXTREMITIES: Upper extremity muscle strength judged to be 5/5 for the major muscle groups in the upper extremity. The patient without significant scoliosis, kyphosis, or lordosis. The patient has pain and discomfort in lower portion of his back with pain that is radiating down the L5-S1 dermatomal distribution on the left. Has a positive straight leg raise on the left. IMPRESSION: 1. Lumbar radiculopathy with history of L5-S1 dermatomal distribution and sensory changes with weakness and tingling. 2. History of L4-L5 lumbar radiculopathy. 3. Hypertension. 4. Coronary artery disease. 5. Left bundle branch block. 6. History of hypertension. 7. Colon problems. RECOMMENDATIONS: We discussed treatment options with the patient. At this juncture, we will continue with his medications. The patient will try OxyIR 5 mg 1 p.o. p.r.n., total of 30 tablets. The patient will also try a Medrol Dosepak. A Medrol Dosepak will be taken as directed over the next 5 days. Hopefully, he can find some benefit from this. We would like to thank you for letting us participate in his care. We hope he continues to improve. The patient will return to the Pain Clinic for an epidural steroid injection as soon as his primary insurer grants him that option. We would like to thank you for letting us participate in his care. We hope he continues to improve. <ELECTRONICALLY SIGNED> By: Mansoor Merrill MD 06/21/19 1510 [id number] Mansoor Merrill MD /hector
== END ==
LOC: PAIN 06:58
DX: M54.16 Radiculopathy, lumbar region (principal); I10 Essential (primary) hypertension; I25.10 Atherosclerotic heart disease of native coronary artery without angina pectoris; I44.7 Left bundle-branch block, unspecified; Z79.899 Other long term (current) drug therapy; Z88.8 Allergy status to other drugs, medicaments and biological substances

== ENCOUNTER → 2019-10-18 | Outpatient (CLI) | payer OTHER, BC ==
[~2019-10-18] VITALS: Ht 188 cm; Wt 118.3 kg
[~2019-10-18] MED LIST changes: +TRAMADOL 50 MG50 MG PO
[2019-10-18 08:29] VITALS: BP 135/91
--- NOTE | 2019-10-18 08:40 | NUR ---
Pain Clinic Assessment: 1. History of Osteoarthritis: DENIES History of Rheumatoid Arthritis: DENIES 2. Height: 6 ft. 2 in. 188.0 cm. Weight: 260.8 lb. oz. 118.298 kg. Patient's BMI: 33.5 3. Vital Signs: BP: 135/91 Pulse: 109 Resp: 18 Temp: 02 Sat: 95 ECG Mon: 4. Pain Intensity: 3, 8 LATER IN DAY 5. Fall Risk: Dizziness: N Needs help standing or walking: N Fallen in the last 3 months: N Fall risk comments: 6. Patient on Blood Thinner: None 7. History of Hypertension: N 8. Opioid Therapy greater than 6 weeks: N Opiate Contract Signed: 9. Risk Assessment Tool Provided: 1-LOW 10. Functional Assessment Tool: 43 11. Recreational Drug Use: Never Drug Type: Tobacco Use: Never Smoker Tobacco Type: Amount or Packs/day: How Many Years: Alcohol Use: Yes Frequency: Quant:
--- NOTE | 2019-11-01 08:40 | HPC ---
[facility] [place] [address] PAIN MANAGEMENT CONSULTATION Name: WAYNE ZURITA Room #: REG MALLORIE LedesmaBelkis#: [id number] Admission: 10/18/19 Attend Phys: Mansoor Merrill MD Discharge: Date of : 58 Report #: [id number] THIS REPORT FOR: cc: Harriet Antonio MD, Ghazal A. MD Brown,Mansoor Burdick MD ~ THIS REPORT FOR: //name// CC: Harriet Merrill DATE OF SERVICE: 10/18/2019 FOLLOWUP HISTORY: The patient is a 59-year-old gentleman who has been followed in the pain clinic. As you recall, he suffers from chronic pain. He has lumbar radiculopathy in the L4-L5 distribution. He has undergone epidural steroid injections in the past and found those to be quite beneficial. He has also had some symptoms in the L5-S1 area. He has returned today with increasing pain and discomfort in his low back and legs. Notes that the pain intensity in the morning is about 3, but it continues to increase as the day goes on. By late afternoon, he is often times limping. Rates his pain as an 8/10 at that juncture. Epidural steroid injections have been beneficial. He has contacted his insurance carrier. He was told that he is able to undergo an epidural steroid injection today. He would also like to have a renewal of the medications. ALLERGIES: LIPITOR. CURRENT MEDICATIONS: Voltaren gel 1% 4 times daily to the upper extremity, ibuprofen 200 mg, Advil 400 mg p.r.n., OxyIR 5 mg 2 tablets daily, tizanidine 4 mg t.i.d., amlodipine/benazepril 10 mg/40 mg, Prilosec 20 mg, aspirin 81 mg, Excedrin caplets for headache, testosterone 1.25 grams gel, Ambien 10 mg, calcium, and Crestor 10 mg. PAIN CLINIC ASSESSMENT AND PQRS: 1. The patient is not being treated for rheumatoid arthritis. He is not being treated for osteoarthritis. 2. Pain intensity 3/10 in the morning, increasing to 6 as the day progresses. 3. Height 6 feet 2 inches, weight 260 pounds, BMI is 33.5. 4. Vital signs: Blood pressure 135/90, pulse 109, respiratory rate 18, room air saturation is 95%. 5. Fall history: The patient has not fallen in the last 3 months. 6. Blood thinner. The patient is not on a blood thinning medication. 7. Hypertension. The patient is being treated for hypertension. 8. Opioids greater than 6 weeks. 9. Risk assessment tool, [place] [address] PAIN MANAGEMENT CONSULTATION Name: PARMINDERWAYNE Room #: REG CL Baltazar.#: [id number] Admission: 10/18/19 Attend Phys: Mansoor Merrill MD Discharge: Date of : 58 Report #: [id number] 10. Functional assessment tool 43/70. 11. Recreational drug use: The patient denies. 12. Tobacco: The patient denies. 13. Vaping: The patient denies. 14. Alcohol: The patient occasionally drinks an alcoholic beverage. PHYSICAL EXAMINATION: GENERAL: The patient is a well-developed, well-nourished white male. Appears his stated age. He is alert and oriented x 3. His affect is appropriate. Speech is fluent. HEENT: Normocephalic, atraumatic. Extraocular eye muscles intact. Sclerae nonicteric. Mucous membranes are moist. NECK: Without adenopathy or JVD. HEART: Regular rate. ABDOMEN: Nontender. Bowel sounds present. EXTREMITIES: Upper extremity muscle strength judged to be 5/5 for the major muscle groups in the upper extremity. The patient is without significant scoliosis, kyphosis, or lordosis. The patient has pain and discomfort in the lower portion of his back with pain that is radiating down into the L5-S1 dermatomal distribution on the left as well as the L5-S1 dermatomal distribution. He has a positive straight leg raise on the left. IMPRESSION: 1. History of lumbar radiculopathy in the L5-S1 dermatomal distribution with sensory changes and weakness with numbness and tingling. 2. History of L4-L5 lumbar radiculopathy. 3. Hypertension. 4. Coronary artery disease. 5. Left bundle branch block. 6. History of hypertension. 7. Colon problems. RECOMMENDATIONS: We discussed treatment options with the patient. The patient states that he talked with his insurance carrier. He states that they said it was okay to proceed with an epidural steroid injection. We called his insurance carrier. They stated that indeed he only has four injections that he is able to receive per year. At this point, he is too early to undergo an epidural steroid injection and have the insurance benefits pay for it. He has elected to continue with his oral medications of tramadol 50 mg 1 p.o. b.i.d. The patient has also been provided with a Medrol Dosepak with a hope that this medication will help decrease some of the swelling and inflammation in the low back area near the L5-S1 nerve root and help decrease his pain. He will return to the Pain Clinic after his yearly injection is allowed. He will call us if he has any concerns. [facility] [place] [address] PAIN MANAGEMENT CONSULTATION Name: WAYNE ZURITA Room #: REG MALLORIE Tariq#: [id number] Admission: 10/18/19 Attend Phys: Mansoor Merrill MD Discharge: Date of : 58 Report #: [id number] We would like to thank you for letting us participate in his care. We hope he continues to improve. <ELECTRONICALLY SIGNED> By: Mansoor Merrill MD 11/01/19 0840 [id number] Mansoor Merrill MD /nt
== END ==
LOC: PAIN 10-11 08:13
DX: M54.17 Radiculopathy, lumbosacral region (principal); I10 Essential (primary) hypertension; I25.10 Atherosclerotic heart disease of native coronary artery without angina pectoris; Z79.899 Other long term (current) drug therapy; Z88.8 Allergy status to other drugs, medicaments and biological substances; Z79.82 Long term (current) use of aspirin

== ENCOUNTER → 2019-11-15 | Outpatient (CLI) | payer OTHER, BC ==
[~2019-11-15] VITALS: Ht 188 cm; Wt 116.8 kg
[2019-11-15 08:11] VITALS: BP 117/78
--- NOTE | 2019-11-15 08:21 | NUR ---
Pain Clinic Assessment: 1. History of Osteoarthritis: DENIES History of Rheumatoid Arthritis: DENIES 2. Height: 6 ft. 2 in. 188.0 cm. Weight: 257.6 lb. oz. 116.847 kg. Patient's BMI: 33.1 3. Vital Signs: BP: 117/78 Pulse: 92 Resp: 16 Temp: 02 Sat: 97 ECG Mon: 4. Pain Intensity: 2-TO 7 LATER IN DAY 5. Fall Risk: Dizziness: N Needs help standing or walking: N Fallen in the last 3 months: N Fall risk comments: 6. Patient on Blood Thinner: None 7. History of Hypertension: N 8. Opioid Therapy greater than 6 weeks: N Opiate Contract Signed: 9. Risk Assessment Tool Provided: 1-LOW 10. Functional Assessment Tool: 43/ 11. Recreational Drug Use: Never Drug Type: Tobacco Use: Never Smoker Tobacco Type: Amount or Packs/day: How Many Years: Alcohol Use: Yes Frequency: Quant:
== END | disposition home or self-care (01) ==
LOC: PAIN 06:41
DX: M54.16 Radiculopathy, lumbar region (principal); G89.29 Other chronic pain; Z88.8 Allergy status to other drugs, medicaments and biological substances; Z79.899 Other long term (current) drug therapy; Z98.890 Other specified postprocedural states

== ENCOUNTER → 2020-02-14 | Outpatient (CLI) | payer OTHER, BC ==
[~2020-02-14] VITALS: Ht 188 cm; Wt 114.7 kg
[~2020-02-14] MED LIST changes: +LORCET 5-325 M1 EACH PO; +PERCOCET 5-3251 EACH PO
[2020-02-14 08:07] VITALS: BP 134/80
--- NOTE | 2020-02-14 08:13 | NUR ---
Pain Clinic Assessment: 1. History of Osteoarthritis: DENIES History of Rheumatoid Arthritis: DENIES 2. Height: 6 ft. 2 in. 188.0 cm. Weight: 252.8 lb. oz. 114.670 kg. Patient's BMI: 32.4 3. Vital Signs: BP: 134/80 Pulse: 81 Resp: 20 Temp: 02 Sat: 96 ECG Mon: 4. Pain Intensity: 5 5. Fall Risk: Dizziness: N Needs help standing or walking: N Fallen in the last 3 months: N Fall risk comments: 6. Patient on Blood Thinner: None 7. History of Hypertension: N 8. Opioid Therapy greater than 6 weeks: Y Opiate Contract Signed: 9. Risk Assessment Tool Provided: 1-LOW 10. Functional Assessment Tool: 11. Recreational Drug Use: Never Drug Type: Tobacco Use: Never Smoker Tobacco Type: Amount or Packs/day: How Many Years: Alcohol Use: Yes Frequency: Quant:
--- NOTE | 2020-02-24 09:03 | HPC ---
[facility] [address] [place] [address] PAIN MANAGEMENT CONSULTATION Name: WAYNE ZURITA Room #: REG MALLORIE LedesmaBelkis#: [id number] Admission: 02/14/20 Attend Phys: Mansoor Merrill MD Discharge: Date of : 58 Report #: [id number] THIS REPORT FOR: cc: Harriet Antonio MD, Ghazal A. MD Brown,Mansoor Burdick MD ~ CC: Harriet Merrill DATE OF SERVICE: 02/14/2020 CHIEF COMPLAINT: Back and leg pain. HISTORY: The patient is a 59-year-old gentleman who has been followed in the Pain Clinic because of chronic lumbar radicular pain. He is experiencing pain in his left leg and hip. Pain is worse on the outside. He has used OxyContin and oxycodone. He also has used tramadol. Pain is still problematic and he rates it as a 5/10. Left side is more problematic than right. It involves his left foot. Has a burning sensation with numbness, shooting, sharp and tingling discomfort. Has a perception of some electrical discomfort in his leg. He notes that walking, standing, kneeling, bending and lifting are problematic. The pain generally worsens as the day goes on. He feels that his medications are helpful. Using cold compresses are helpful. Lying down, can be helpful. ALLERGIES: LIPITOR. CURRENT MEDICATIONS: Voltaren gel 1% 4 times daily, ibuprofen 200 mg, OxyIR 5 mg 2 tablets daily, tizanidine 4 mg, amlodipine/benazepril 10/40, Prilosec 20 mg, aspirin 81 mg, Excedrin caplets for headaches, testosterone 1.25 grams gel, Ambien 10 mg, calcium, and Crestor 10 mg. PAIN CLINIC ASSESSMENT/PQRS: 1. The patient is not being treated for rheumatoid arthritis. He is not being treated for osteoarthritis. 2. Height 6 feet 2 inches, weight 252 pounds, BMI is 32. 3. Vital signs: Blood pressure is 134/80, pulse 81, respiratory rate 20, room air saturation 96%. 4. Pain intensity is 5/10. 5. Fall history: The patient has not fallen in the last 3 months. 6. Blood thinner. The patient is not on a blood thinning medication. 7. Hypertension. The patient is not being treated for hypertension. 8. Opioids greater than 6 weeks. The patient received medication from one source. 9. Risk assessment tool, low for opioid use. 10. Functional assessment tool, 43/70. [address] [address] PAIN MANAGEMENT CONSULTATION Name: PARMINDERWAYNE FRANZ Room #: REG [facility] Mayo.#: [id number] Admission: 02/14/20 Attend Phys: Mansoor Merrill MD Discharge: Date of : 58 Report #: [id number] 11. Recreational drug use. 12. Tobacco: The patient has never smoked. 13. Alcohol: The patient admits to occasional use of alcoholic beverages. PHYSICAL EXAMINATION: GENERAL: The patient is a well-developed, well-nourished white male. Appears his stated age. He is alert and oriented x 3. His affect is appropriate. Speech is fluent. HEENT: Normocephalic, atraumatic. Extraocular eye muscles intact. Sclerae nonicteric. Mucous membranes are moist. NECK: Without adenopathy or JVD. HEART: Regular rate. LUNGS: Clear to auscultation. ABDOMEN: Nontender. Bowel sounds present. EXTREMITIES: Upper extremity muscle strength is judged to be 5/5 for the major muscle groups in the upper extremity. The patient is without significant scoliosis, kyphosis or lordosis. The patient has pain and discomfort in the lower portion of his back. Has pain that radiates down in the L5-S1 dermatomal distribution involving both legs, left side more problematic than right. IMPRESSION: 1. Lumbar radiculopathy at L5-S1 with sensory changes and weakness in the affected area. 2. History of L4-L5 lumbar radiculopathy. 3. History of hypertension. 4. Coronary artery disease. 5. Left bundle branch block. 6. Colon problems. RECOMMENDATIONS: We discussed treatment options with the patient. Risks and benefits of an epidural steroid injection were discussed. Possible complications of the procedure, which could include but are not limited to infection, worsening of pain, no improvement in pain, nerve damage, spinal headache were discussed. The patient elects to proceed. We discussed the risks and benefits of the procedure given the COVID-19 pandemic. The use of steroids can decrease one's immunity. The patient is aware. He feels that his pain is problematic. He has taken all the precautions that he can to mitigate the chance of getting the COVID-19. He will follow up in the future as needed. A script for medications of OxyIR 5 mg 1 p.o. total of 90 tablets have been provided for the next month. The patient will also continue with tramadol 50 mg 1 p.o. t.i.d. with 2 refills. PROCEDURE NOTE: The patient was taken to the procedure area. He was then assisted in getting on the examination table. His back was sterilely prepped with a Betadine solution. A 0.25% bupivacaine was infiltrated. A 17-gauge Tuohy with loss of resistance technique was used to gain access to the epidural [facility] [address] [place] [address] PAIN MANAGEMENT CONSULTATION Name: PARMINDERWAYNE FRANZ Room #: REG CLI [facility].#: [id number] Admission: 02/14/20 Attend Phys: Mansoor Merrill MD Discharge: Date of : 58 Report #: [id number] space at the L5-S1 area. A total of 80 mg Depo-Medrol, 40 mg triamcinolone and 2 mL of 0.25% bupivacaine was injected. This area had been viewed using fluoroscopy. We would like to thank you for letting us participate in his care. <ELECTRONICALLY SIGNED> By: Mansoor Merrill MD 02/24/20 0903 [id number] [id number] Mansoor Merrill MD /nt
== END ==
LOC: PAIN 06:47
PROVIDERS: ATTEND Anesthesiology Pain Medicine
DX: M54.16 Radiculopathy, lumbar region (principal); G89.29 Other chronic pain; Z98.890 Other specified postprocedural states; Z79.899 Other long term (current) drug therapy; Z88.8 Allergy status to other drugs, medicaments and biological substances

== ENCOUNTER → 2020-04-03 | Outpatient (CLI) | payer OTHER, BC ==
[~2020-04-03] VITALS: Ht 188 cm; Wt 112.1 kg
[2020-04-03 08:35] VITALS: BP 130/80
--- NOTE | 2020-04-03 08:42 | NUR ---
Pain Clinic Assessment: 1. History of Osteoarthritis: DENIES History of Rheumatoid Arthritis: DENIES 2. Height: 6 ft. 2 in. 188.0 cm. Weight: 247.2 lb. oz. 112.129 kg. Patient's BMI: 31.7 3. Vital Signs: BP: 130/80 Pulse: 84 Resp: 16 Temp: 02 Sat: 97 ECG Mon: 4. Pain Intensity: 4 5. Fall Risk: Dizziness: N Needs help standing or walking: N Fallen in the last 3 months: N Fall risk comments: 6. Patient on Blood Thinner: None 7. History of Hypertension: N 8. Opioid Therapy greater than 6 weeks: Y Opiate Contract Signed: 9. Risk Assessment Tool Provided: 1-LOW 10. Functional Assessment Tool: 11. Recreational Drug Use: Never Drug Type: Tobacco Use: Never Smoker Tobacco Type: Amount or Packs/day: How Many Years: Alcohol Use: Yes Frequency: Quant:
--- NOTE | 2020-04-23 22:48 | HPC ---
[facility] [place] [address] PAIN MANAGEMENT CONSULTATION Name: WAYNE ZURITA Room #: REG MALLORIE Ledesma.#: [id number] Admission: 04/03/20 Attend Phys: Mansoor Merrill MD Discharge: Date of : 58 Report #: [id number] THIS REPORT FOR: cc: Harriet Antonio MD, Ghazal A. MD Brown,Mansoor Burdick MD ~ CC: Harriet Merrill DATE OF SERVICE: 04/03/2020 CHIEF COMPLAINT: Pain in the low back and pain down into both buttocks and hips. HISTORY: The patient is a 59-year-old gentleman who has been followed in the pain clinic because of chronic lumbar radicular pain. He rates his pain today as 4/10. Describes as burning with numbness, shooting pain, sharp and tingling sensation with electrical characteristics. It radiates in his low back down into both buttocks area. Left side is more problematic. It radiates down into his left foot. He has returned to the pain clinic today for evaluation. He would like to have his medications renewed. ALLERGIES: LIPITOR. CURRENT MEDICATIONS: Voltaren gel 1% 4 times daily, ibuprofen 200 mg, OxyIR 5 mg 2 tablets daily, tizanidine 4 mg, amlodipine/benazepril 10/40, Prilosec 20 mg, aspirin 81 mg, Excedrin caplets for headaches, testosterone 1.25 gram of gel, Ambien 10 mg, calcium, and Crestor 10 mg. PAIN CLINIC ASSESSMENT AND PQRS: 1. The patient is not being treated for rheumatoid arthritis. He does have pain and discomfort in the lower portion of his back. 2. Height 6 feet 2 inches, weight 247 pounds, BMI 31.7. 3. Vital Signs: Blood pressure 130/80, pulse 84, respiratory rate 16, room air saturation 97%. 4. Pain intensity 10. 5. Fall History: The patient has not fallen in the last 3 months. 6. Blood Thinner: The patient is not on a blood thinning medication. 7. Hypertension: The patient is not being treated for hypertension. 8. Opioids greater than 6 weeks: The patient receives medication from one source the pain clinic. 9. Risk assessment tool: Low for opioid use. 10. Functional assessment tool: 43/70. 11. Recreational drug use: The patient denies. 12. Tobacco: The patient has never smoked. 13. Alcohol: The patient occasionally drinks alcoholic beverages. [address] [address] PAIN MANAGEMENT CONSULTATION Name: WAYNE ZURITA Room #: REG [facility]#: [id number] Admission: 04/03/20 Attend Phys: Mansoor Merrill MD Discharge: Date of : 58 Report #: [id number] PHYSICAL EXAMINATION: GENERAL: The patient is a well-developed, well-nourished white male. Appears his stated age. He is alert and oriented x 3. His affect is appropriate. Speech is fluent. HEENT: Normocephalic, atraumatic. Extraocular eye muscles intact. Sclerae are nonicteric. Mucous membranes are moist. The patient is wearing a mask. NECK: Without adenopathy or JVD. HEART: Regular rate. LUNGS: Clear to auscultation. ABDOMEN: Nontender. Bowel sounds are present. EXTREMITIES: Upper extremity muscle strength judged to be 5/5 for the major muscle groups in the upper extremity. The patient is without significant scoliosis, kyphosis or lordosis. He has pain in the lower portion of his back that radiates down into his low back area in the L5-S1 dermatomal distribution involving both legs, more problematic on the right with pain down into the right foot. IMPRESSION: 1. Lumbar radiculopathy with L5-S1 with sensory changes and weakness in the affected area. 2. History of L4-L5 lumbar radiculopathy. 3. History of hypertension. 4. Coronary artery disease. 5. Left bundle branch block. 6. Colon problems. RECOMMENDATIONS: We discussed treatment options with the patient. At this juncture, we will continue with his medications. He will take the medication as prescribed. A script for his medications has been forwarded to his pharmacy. He will continue with OxyIR 5 mg 1 p.o. daily. He will continue with tramadol 50 mg 1 p.o. t.i.d. He will continue with them. We will try a Medrol Dosepak at this juncture. Hopefully, this will help with pain and discomfort that he is having. Should his pain continue to be problematic, he will return to the Pain Clinic for possibility of an epidural steroid injection. We would like to thank you for letting us participate in his care. We hope he continues to improve. <ELECTRONICALLY SIGNED> By: Mansoor Merrill MD 04/23/20 [id number] Mansoor Merrill MD /hector
== END ==
LOC: PAIN 06:42
PROVIDERS: ATTEND Anesthesiology Pain Medicine
DX: M54.17 Radiculopathy, lumbosacral region (principal); I10 Essential (primary) hypertension; I25.10 Atherosclerotic heart disease of native coronary artery without angina pectoris; I44.7 Left bundle-branch block, unspecified; Z79.891 Long term (current) use of opiate analgesic

== ENCOUNTER → 2020-04-24 | Outpatient (CLI) | payer OTHER, BC ==
[~2020-04-24] VITALS: Ht 188 cm; Wt 112.9 kg
[2020-04-24 08:20] VITALS: BP 117/92
--- NOTE | 2020-04-24 08:26 | NUR ---
Pain Clinic Assessment: 1. History of Osteoarthritis: DENIES History of Rheumatoid Arthritis: DENIES 2. Height: 6 ft. 2 in. 188.0 cm. Weight: 249.0 lb. oz. 112.946 kg. Patient's BMI: 32.0 3. Vital Signs: BP: 117/92 Pulse: 84 Resp: 16 Temp: 02 Sat: 98 ECG Mon: 4. Pain Intensity: 4 5. Fall Risk: Dizziness: N Needs help standing or walking: N Fallen in the last 3 months: N Fall risk comments: 6. Patient on Blood Thinner: None 7. History of Hypertension: N 8. Opioid Therapy greater than 6 weeks: Y Opiate Contract Signed: 9. Risk Assessment Tool Provided: 1-LOW 10. Functional Assessment Tool: 43 11. Recreational Drug Use: Never Drug Type: Tobacco Use: Never Smoker Tobacco Type: Amount or Packs/day: How Many Years: Alcohol Use: Yes Frequency: Quant:
--- NOTE | 2020-05-08 08:23 | HPC ---
[facility] [place] [address] [address] [place] [address] PAIN MANAGEMENT CONSULTATION Name: WAYNE ZURITA Room #: REG MALLORIE Ledesma.#: [id number] Admission: 04/24/20 Attend Phys: Mansoor Merrill MD Discharge: Date of : 58 Report #: [id number] THIS REPORT FOR: cc: Harriet Antonio MD, Ghazal A. MD Brown,Mansoor Burdick MD ~ CC: Harriet Merrill DATE OF SERVICE: 04/24/2020 CHIEF COMPLAINT: Here for an epidural steroid injection. HISTORY: The patient is a 59-year-old gentleman who has been followed in the pain clinic because of lumbar radiculopathy. He has returned today with continued pain and discomfort involving his left low back area. He is experiencing pain that radiates down into his left leg. He rates it as 4/10 at this point. He is experiencing some discomfort in the right buttocks area as well. Left is most problematic. Notes some burning, numbness, shooting, sharp, tingling and electrical pain in the lower portion of his leg in the L5-S1 area. Notes that walking, standing, kneeling, bending and lifting can make the pain more problematic. He feels that the pain worsens as the day progresses. He does note some benefit from use of his medications, application of cold and lying down. ALLERGIES: LIPITOR. CURRENT MEDICATIONS: Voltaren gel 1% 4 times daily, ibuprofen 200 mg, OxyIR 5 mg 2 tablets daily, tizanidine 4 mg, amlodipine/benazepril 10/40, Prilosec 20 mg, aspirin 81 mg, Excedrin caplets for headaches, testosterone 1.25 grams gel, Ambien 10 mg, calcium, and Crestor 10 mg. PAIN CLINIC ASSESSMENT AND PQRS: 1. The patient is not being treated for rheumatoid arthritis. He does have some pain and discomfort in the lower portion of his back. 2. Height 6 feet 2 inches, weight 249 pounds, BMI is 32. 3. Vital Signs: Blood pressure 117/92, pulse 82, respiratory rate 16, room air saturation 98%. 4. Pain intensity, 01/02. 5. Fall history. The patient has not fallen in the last 3 months. 6. Blood thinner. The patient is not on a blood thinning medication. 7. Hypertension. The patient is not being treated for hypertension. 8. Opioids greater than 6 weeks. 9. The patient receives medication from the pain clinic. 10. Risk assessment tool, low for opioid use. 11. Functional assessment tool, 43/70[place] [id number] PAIN MANAGEMENT CONSULTATION Name: PARMINDERWAYNE MARIA M Room #: [facility] [id number] Admission: 04/24/20 Attend Phys: Mansoor Merrill MD Discharge: Date of : 58 Report #: [id number] 12. Recreational drug use. The patient denies. 13. Tobacco. The patient has never smoked. 14. Alcohol. The patient occasionally drinks alcoholic beverages. PHYSICAL EXAMINATION: GENERAL: The patient is a well-developed, well-nourished, white male. Appears his stated age. He is alert and oriented x 3. His affect is appropriate. Speech is fluent. HEENT: Normocephalic, atraumatic. Extraocular eye muscles intact. Sclerae nonicteric. Mucous membranes are moist. The patient is wearing a mask. NECK: Without adenopathy or JVD. HEART: Regular rate. LUNGS: Clear to auscultation. ABDOMEN: Nontender. Bowel sounds present. EXTREMITIES: Upper extremity muscle strength judged to be 5/5 for the major muscle groups in the upper extremity. The patient is without significant scoliosis, kyphosis or lordosis. The patient has pain and discomfort in the lower portion of his back with pain that is radiating down the L5-S1 area and the left side more problematic than the right side. It radiates down into his right foot. IMPRESSION: 1. Lumbar radiculopathy with L5-S1 dermatomal distribution with weakness in the affected area. 2. History of L4-L5 lumbar radiculopathy. 3. History of hypertension. 4. Coronary artery disease. 5. Left bundle-branch block. 6. Colon problems. RECOMMENDATIONS: We discussed treatment options with the patient. Risks and benefits of an epidural steroid injection were again discussed. Possible complications of the procedure were reviewed. They include but are not limited to infection, worsening of pain, no improvement in pain, nerve damage, bleeding, and the patient elects to proceed. We discussed the problems with COVID-19. Should the patient become infected, he may have a more difficult time with the infection given that steroids suppress the immune system. He elects to proceed. PROCEDURE NOTE: The patient was taken to the procedure area. He was then assisted in getting on the examination table. His back was sterilely prepped with a Betadine solution. A 0.25% bupivacaine was infiltrated. A 17-gauge Tuohy with loss of resistance technique was used to gain access to the epidural space. There was no CSF, heme or paresthesia. A total of 80 mg Depo-Medrol, 40 mg triamcinolone and 2 mL of 0.25% bupivacaine was injected. The patient tolerated the procedure well. He remained in the pain clinic for an appropriate amount of time. He will follow up in the future as needed. [facility] [place] [address] PAIN MANAGEMENT CONSULTATION Name: WAYNE ZURITA Room #: REG CLI [facility].#: [id number] Admission: 04/24/20 Attend Phys: Mansoor Merrill MD Discharge: Date of : 58 Report #: [id number] We would like to thank you for letting us participate in his care. We hope he continues to improve. <ELECTRONICALLY SIGNED> By: Mansoor Merrill MD 05/08/20 0823 0031 0142 Mansoor Merrill MD /PMT
== END ==
LOC: PAIN 06:53
PROVIDERS: ATTEND Anesthesiology Pain Medicine
DX: M54.16 Radiculopathy, lumbar region (principal); I10 Essential (primary) hypertension; I25.10 Atherosclerotic heart disease of native coronary artery without angina pectoris; Z79.899 Other long term (current) drug therapy; Z88.8 Allergy status to other drugs, medicaments and biological substances; Z98.890 Other specified postprocedural states

== ENCOUNTER → 2020-06-05 | Outpatient (CLI) | payer OTHER, BC ==
[~2020-06-05] VITALS: Ht 188 cm; Wt 112.0 kg
[~2020-06-05] MED LIST changes: +PERCOCET 7.5-31 EACH PO; +ZANAFLEX4 M2 PO
[2020-06-05 08:08] VITALS: BP 137/100
--- NOTE | 2020-06-05 08:13 | NUR ---
Pain Clinic Assessment: 1. History of Osteoarthritis: DENIES History of Rheumatoid Arthritis: DENIES 2. Height: 6 ft. 2 in. 188.0 cm. Weight: 247.0 lb. oz. 112.039 kg. Patient's BMI: 31.7 3. Vital Signs: BP: 137/100 Pulse: 108 Resp: 14 Temp: 02 Sat: 97 ECG Mon: 4. Pain Intensity: 4-8 5. Fall Risk: Dizziness: N Needs help standing or walking: N Fallen in the last 3 months: N Fall risk comments: 6. Patient on Blood Thinner: None 7. History of Hypertension: N 8. Opioid Therapy greater than 6 weeks: Y Opiate Contract Signed: 9. Risk Assessment Tool Provided: 1-LOW 10. Functional Assessment Tool: 11. Recreational Drug Use: Never Drug Type: Tobacco Use: Never Smoker Tobacco Type: Amount or Packs/day: How Many Years: Alcohol Use: Yes Frequency: Quant:
--- NOTE | 2020-06-08 07:43 | HPC ---
[facility] [place] [address] PAIN MANAGEMENT CONSULTATION Name: WAYNE ZURITA Room #: REG Nicolle Ledesma.#: [id number] Admission: 06/05/20 Attend Phys: Leah Mandel Discharge: Date of : 58 Report #: [id number] THIS REPORT FOR: cc: Harriet Antonio MD, Ghazal A. MD Hocker, Amanda CNS ~ CC: James Merrill MD DATE OF SERVICE: 06/05/2020 CHIEF COMPLAINT: Low back pain with lumbar radiculopathy. HISTORY OF PRESENT ILLNESS: This is a pleasant 59-year-old gentleman who returns to the pain clinic today for refill of his medications. He is reporting that the lumbar epidural steroid injection that Dr. Merrill performed in March was not as beneficial as it had been in the past affording him only about 8-week relief where in the past that had been significantly longer. He reports that he has been taking 2 Percocet every day as well as his tramadol up to 3 times a day. He is here requesting refills of his medication for his low back pain that radiates into his bilateral legs into his left foot. There is a constant burning, sharp pain, rating at a 4-8 today depending on activity, especially as when he is working and bending. He reports that his pain does increase as the day goes on. He denies problems with constipation or daytime somnolence as a result of his medication, though he feels that he needs a slight increase in his medication or he is requesting a Medrol Dosepak. ALLERGIES: ATORVASTATIN. CURRENT LIST OF MEDICATIONS: Tramadol 50 mg t.i.d., oxycodone/Percocet 5/325 p.r.n., tizanidine 4 mg t.i.d. p.r.n., diclofenac gel, amlodipine, omeprazole, Excedrin, Ambien, testosterone and Crestor. PQRS: 1. He has not been treated for rheumatoid arthritis, but does have osteoarthritis that affects his lower back. 2. Height is 6 feet 2 inches. 3. Weight is 247, BMI is 31. Vital signs 137/100, pulse is 108, respirations 14, oxygen sat is 97%. Pain score is 4-8/10. Fall risk. Denies dizziness, does not need help walking or standing, has not fallen in the last 3 months. 4. The patient is not on any blood thinners. Does have a history of hypertension. 5. Opioid therapy is greater than 6 weeks; therefore, an opioid signed contract is on the chart. Risk assessment is low. Functional assessment is 43/70. 6. Recreational drug use, he denies. He is not a smoker [place] [address] PAIN MANAGEMENT CONSULTATION Name: WAYNE ZURITA Room #: REG CLNicolle Tariq#: [id number] Admission: 06/05/20 Attend Phys: Leah Mandel Discharge: Date of : 58 Report #: [id number] According to the prescription monitoring system, the patient is filling appropriately for his medications, filling them in a timely fashion. PHYSICAL EXAMINATION: GENERAL: This is an alert and orientated, well-developed, well-nourished 59-year-old gentleman who appears his stated age, placing his current pain score from 4-8/10 today. HEENT: Normocephalic, atraumatic. Extraocular eye muscles are intact. He is wearing a mask. MUSCULOSKELETAL: The patient walks with a slightly antalgic gait. His upper and lower extremity strength is equal and symmetrical at 5/5 for all major muscle groups. He is without significant scoliosis, kyphosis or lordosis. Pain that radiates from the lumbosacral region into his L5-S1 area down the left into his foot, greater on his left foot today than the right. IMPRESSION: 1. Lumbar radiculopathy with L5-S1 dermatomal distribution. 2. History of L4-L5 lumbar radiculopathy. 3. History of left bundle branch block. 4. History of hypertension. PLAN: 1. We discussed treatment options with the patient today. The patient states unfortunately that the epidural was not as effective as in the past. He is requesting a Medrol Dosepak until he is able to have another injection in August. I explained to him that the risks and benefits of too much steroids. According to our records, he has had 3 Medrol Dosepak this year as well as 3 steroid injections. At this time, we do not wish to provide him with one additional steroid pack. The patient verbalizes understanding. 2. In the past, the patient was on nabumetone every day for anti-inflammatory processes. Currently, he has been taking only Advil once in a while. We will restart him on nabumetone 750 mg b.i.d. to see if this is beneficial in decreasing some of his pain. I encouraged him to watch for any GI disturbances and is to call us if this occurs. 3. We will refill his tizanidine 4 mg b.i.d., #60 with 2 additional refills. The patient has been taking this after work due to some sedating effects, but finds it beneficial when he has muscle tightness in his lower back. 4. We will have Dr. Merrill send his tramadol 50 mg #90 with 2 additional refills, this is a total of 3 months for the patient. 5. I discussed this case with Dr. Eduin Merrill and he was agreeable to increase his oxycodone to 7.5 mg, again taking only one tablet a day. I explained to the patient he may take a half to one tablet 1 time a day. We will provide him with a script for 90. This will be a 3-month supply of this medication for him. The patient verbalizes understanding. [address] [address] PAIN MANAGEMENT CONSULTATION Name: WAYNE ZURITA Room #: REG [facility] MLupis.#: [id number] Admission: 06/05/20 Attend Phys: Leah Mandel Discharge: Date of : 58 Report #: [id number] The patient is seen today in collaboration with Dr. Eduin Merrill. <ELECTRONICALLY SIGNED> By: Leah Mandel 06/08/20 [id number] [id number] Leah Mandel /nt
== END ==
LOC: PAIN 06:49
PROVIDERS: ATTEND Clinical Nurse Specialist Adult Health
DX: M54.17 Radiculopathy, lumbosacral region (principal); I10 Essential (primary) hypertension; Z87.39 Personal history of other diseases of the musculoskeletal system and connective tissue; Z86.79 Personal history of other diseases of the circulatory system; Z88.8 Allergy status to other drugs, medicaments and biological substances; Z79.899 Other long term (current) drug therapy

== ENCOUNTER → 2020-08-28 | Outpatient (CLI) | payer OTHER, BC ==
[~2020-08-28] VITALS: Ht 188 cm; Wt 115.8 kg
[2020-08-28 08:26] VITALS: BP 132/92
--- NOTE | 2020-08-28 08:40 | NUR ---
Pain Clinic Assessment: 1. History of Osteoarthritis: DENIES History of Rheumatoid Arthritis: DENIES 2. Height: 6 ft. 2 in. 188.0 cm. Weight: 255.2 lb. oz. 115.758 kg. Patient's BMI: 32.8 3. Vital Signs: BP: 132/92 Pulse: 104 Resp: 14 Temp: 02 Sat: 96 ECG Mon: 4. Pain Intensity: 5 5. Fall Risk: Dizziness: N Needs help standing or walking: N Fallen in the last 3 months: N Fall risk comments: 6. Patient on Blood Thinner: None 7. History of Hypertension: Y 8. Opioid Therapy greater than 6 weeks: Y Opiate Contract Signed: 9. Risk Assessment Tool Provided: 1-LOW 10. Functional Assessment Tool: 43 11. Recreational Drug Use: Never Drug Type: Tobacco Use: Never Smoker Tobacco Type: Amount or Packs/day: How Many Years: Alcohol Use: Yes Frequency: Quant:
== END | disposition home or self-care (01) ==
LOC: PAIN 06:46
PROVIDERS: ATTEND Anesthesiology Pain Medicine
DX: M54.16 Radiculopathy, lumbar region (principal); G89.29 Other chronic pain; I10 Essential (primary) hypertension; I25.10 Atherosclerotic heart disease of native coronary artery without angina pectoris; Z98.890 Other specified postprocedural states; Z79.899 Other long term (current) drug therapy; Z87.442 Personal history of urinary calculi; Z88.8 Allergy status to other drugs, medicaments and biological substances

== ENCOUNTER → 2020-11-20 | Outpatient (CLI) | payer OTHER, BC ==
[~2020-11-20] VITALS: Ht 188 cm; Wt 119.6 kg
[~2020-11-20] MED LIST changes: +RELAFEN750 M1 PO
--- NOTE | 2020-11-20 08:14 | NUR ---
Pain Clinic Assessment: 1. History of Osteoarthritis: DENIES History of Rheumatoid Arthritis: DENIES 2. Height: ft. in. cm. Weight: lb. oz. kg. Patient's BMI: 3. Vital Signs: BP: Pulse: Resp: Temp: 02 Sat: ECG Mon: 4. Pain Intensity: 5 5. Fall Risk: Dizziness: N Needs help standing or walking: N Fallen in the last 3 months: N Fall risk comments: 6. Patient on Blood Thinner: None 7. History of Hypertension: Y 8. Opioid Therapy greater than 6 weeks: Y Opiate Contract Signed: 9. Risk Assessment Tool Provided: 1-LOW 10. Functional Assessment Tool: 11. Recreational Drug Use: Never Drug Type: Tobacco Use: Former Smoker Tobacco Type: Amount or Packs/day: How Many Years: Alcohol Use: Yes Frequency: Special Occasions Quant: 1
[2020-11-20 08:42] VITALS: BP 140/84
--- NOTE | 2020-11-20 09:59 | HPC ---
[facility] [address] [place] [address] PAIN MANAGEMENT CONSULTATION Name: WAYNE ZURITA Room #: REG MALLORIE Chandni#: [id number] Admission: 11/20/20 Attend Phys: Leah Mandel Discharge: Date of : 58 Report #: [id number] THIS REPORT FOR: cc: Harriet Antonio MD, Ghazal A. MD Hocker, Amanda CNS ~ DATE OF SERVICE: 11/20/2020 CHIEF COMPLAINT: Low back pain with lumbar radiculopathy. HISTORY OF PRESENT ILLNESS: This is a 60-year-old gentleman who returns to the pain clinic today for medical management refills as well as discussion for an upcoming injection. The patient reports his pain score today at 5/10, located in his left lower back that does radiate into his left hip across to his thigh, down into the lateral aspect of his foot. The most problematic in his left hip and thigh area. He reports it is a burning, shooting pain that is worse with walking and standing. He is very active at work and his pain does increase as the day progresses. He believes the medications are beneficial as well as utilizing cold and lying down. His last epidural steroid injection from Dr. Merrill was in August that afforded him at least 50% relief for at least 2 months. He reports he has no shocking pain that was radiating down his right leg, which he is very grateful for. Today, he would like refills of his medication and try to schedule an epidural and seek authorization. The patient does report he has had his first COVID vaccination and is scheduled next week to have his second on 11/25. He reports he would like to have his injection on a Monday, so he is able to rest over the weekend for better efficacy. ALLERGIES: ATORVASTATIN. CURRENT LIST OF MEDICATIONS: Tizanidine, tramadol, oxycodone, nabumetone, Voltaren gel, amlodipine, omeprazole, Excedrin, Ambien, testosterone, and Crestor. PQRS: 1. He has arthritic changes in his lower back. Denies any rheumatoid arthritis. 2. Height is 6 feet 2 inches, weight is 263, BMI unsure. Vital signs 140/84, pulse is 99, respirations 16, oxygen sat is 99%. 3. Pain score is 5/10. 4. Denies dizziness, does not need help walking or standing, has not fallen in the last 3 months. 5. The patient is not on any blood thinners, but does take [place] [address] PAIN MANAGEMENT CONSULTATION Name: WAYNE ZURITA [facility] [id number] Admission: 11/20/20 Attend Phys: Leah Mandel Discharge: Date of : 58 Report #: [id number] 6. Opioid therapy is greater than 6 weeks; therefore, an opioid signed contract is on the chart. Risk assessment is low. Functional assessment is 43/70. 7. Recreational drug use, he denies. He is a former smoker and occasionally drinks alcohol. According to the prescription monitoring system, he is due to fill his medications, filling them in a timely fashion. His morphine milliequivalent is less than 30 MMEs per day. PHYSICAL EXAMINATION: GENERAL: He is alert and orientated, well-developed, well-nourished white gentleman who appears his stated age, placing his current pain score at 5/10. Affect is appropriate and his speech is fluent. HEENT: Normocephalic, atraumatic. Extraocular eye muscles are intact. He is wearing a mask. MUSCULOSKELETAL: The patient is without significant scoliosis, kyphosis or lordosis. He has discomfort in his lower lumbar region that radiates into his left hip following the L2-L3 dermatomal distribution and he also experiences pain that radiates into the dorsum of his foot following the L5-S1 dermatomal distribution. The pain is more problematic today in the L2-L3 region. He has a slightly antalgic gait and his lower extremity strength are symmetrical at 5/5. IMPRESSION: 1. Lumbar radiculopathy, multiple levels. 2. History of hypertension. 3. Opioid management under terms of written agreement. PLAN: 1. We discussed treatment options with the patient today. The patient would like us to seek authorization for another epidural. His previous one afforded him at least 50% relief, possibly greater since he is having no right leg pain today. Only left side following the L2-L3 dermatomal distribution is the most problematic area, though he does have symptoms that are consistent with L4-L5 and L5-S1 dermatone areas as well. We will seek authorization for a lumbar epidural steroid injection at the L2-L3 level. We will tentatively set a date for an injection for 12/11. 2. The patient is undergoing a second COVID vaccine on 11/25. I explained that we will wait 2 weeks after the vaccine before we schedule his injection. The patient would like to schedule on Monday, so he is able to rest over the weekend and get the most benefit from his injection. 3. We will continue his medications, which he does find very beneficial with very minimal side effects. Sending scripts today for nabumetone 750 mg b.i.d., #60 with 2 additional refills; Zanaflex 4 mg tablets 2 t.i.d. #180, with 2 refills; tramadol 50 mg t.i.d., #90, with 2 refills and Percocet 7.5/325, #90. These were all sent electronically to his pharmacy. [address] [address] PAIN MANAGEMENT CONSULTATION Name: WAYNE ZURITA Room #: REG CL Chandni#: [id number] Admission: 11/20/20 Attend Phys: Leah Mandel Discharge: Date of : 58 Report #: [id number] 4. The patient is seen today in collaboration with Dr. Eduin Merrill who collaborated care. <ELECTRONICALLY SIGNED> By: Leah Mandel 11/20/20 0959 [id number] Leah Mandel /hector
== END ==
LOC: PAIN 06:56
PROVIDERS: ATTEND Clinical Nurse Specialist Adult Health
DX: M54.16 Radiculopathy, lumbar region (principal); F11.20 Opioid dependence, uncomplicated; I10 Essential (primary) hypertension; Z88.8 Allergy status to other drugs, medicaments and biological substances; Z79.899 Other long term (current) drug therapy

== ENCOUNTER → 2020-12-11 | Outpatient (CLI) | payer OTHER, BC ==
[~2020-12-11] VITALS: Ht 188 cm; Wt 117.7 kg
[2020-12-11 08:23] VITALS: BP 117/79
--- NOTE | 2020-12-11 08:39 | NUR ---
Pain Clinic Assessment: 1. History of Osteoarthritis: DENIES History of Rheumatoid Arthritis: DENIES 2. Height: 6 ft. 2 in. 188.0 cm. Weight: 259.4 lb. oz. 117.663 kg. Patient's BMI: 33.3 3. Vital Signs: BP: 117/79 Pulse: 82 Resp: 16 Temp: 02 Sat: 98 ECG Mon: 4. Pain Intensity: 5 5. Fall Risk: Dizziness: N Needs help standing or walking: N Fallen in the last 3 months: N Fall risk comments: 6. Patient on Blood Thinner: None 7. History of Hypertension: Y 8. Opioid Therapy greater than 6 weeks: Y Opiate Contract Signed: 9. Risk Assessment Tool Provided: 1-LOW 10. Functional Assessment Tool: 43 11. Recreational Drug Use: Never Drug Type: Tobacco Use: Former Smoker Tobacco Type: Amount or Packs/day: How Many Years: Alcohol Use: Yes Frequency: Quant:
== END | disposition home or self-care (01) ==
LOC: PAIN 06:47
PROVIDERS: ATTEND Anesthesiology Pain Medicine
DX: M54.16 Radiculopathy, lumbar region (principal); G89.29 Other chronic pain; I10 Essential (primary) hypertension; I25.10 Atherosclerotic heart disease of native coronary artery without angina pectoris; G47.00 Insomnia, unspecified; Z98.890 Other specified postprocedural states; Z79.899 Other long term (current) drug therapy; Z87.442 Personal history of urinary calculi; Z87.891 Personal history of nicotine dependence; Z88.8 Allergy status to other drugs, medicaments and biological substances

== ENCOUNTER → 2021-02-05 | Outpatient (CLI) | payer OTHER, BC ==
[~2021-02-05] VITALS: Ht 188 cm; Wt 116.9 kg
[~2021-02-05] MED LIST changes: +AMITRIPTYLINE H10 M1 PO
[2021-02-05 08:46] VITALS: BP 131/74
--- NOTE | 2021-02-05 09:02 | NUR ---
Pain Clinic Assessment: 1. History of Osteoarthritis: DENIES History of Rheumatoid Arthritis: DENIES 2. Height: 6 ft. 2 in. 188.0 cm. Weight: 257.8 lb. oz. 116.938 kg. Patient's BMI: 33.1 3. Vital Signs: BP: 131/74 Pulse: 98 Resp: 16 Temp: 02 Sat: 100 ECG Mon: 4. Pain Intensity: 6 5. Fall Risk: Dizziness: N Needs help standing or walking: N Fallen in the last 3 months: N Fall risk comments: 6. Patient on Blood Thinner: None 7. History of Hypertension: Y 8. Opioid Therapy greater than 6 weeks: Y Opiate Contract Signed: 04/08/20 9. Risk Assessment Tool Provided: 1-LOW 10. Functional Assessment Tool: 11. Recreational Drug Use: Never Drug Type: Tobacco Use: Former Smoker Tobacco Type: Amount or Packs/day: How Many Years: Alcohol Use: Yes Frequency: Special Occasions Quant: 1
== END | disposition home or self-care (01) ==
LOC: PAIN 07:01
PROVIDERS: ATTEND Anesthesiology Pain Medicine
DX: M54.16 Radiculopathy, lumbar region (principal); G89.29 Other chronic pain; I10 Essential (primary) hypertension; I25.10 Atherosclerotic heart disease of native coronary artery without angina pectoris; Z98.890 Other specified postprocedural states; Z79.899 Other long term (current) drug therapy; Z87.19 Personal history of other diseases of the digestive system; Z87.891 Personal history of nicotine dependence; Z88.8 Allergy status to other drugs, medicaments and biological substances

== ENCOUNTER → 2021-04-28 | Outpatient (CLI) | payer OTHER, BC ==
[~2021-04-28] VITALS: Ht 188 cm; Wt 115.0 kg
[2021-04-28 08:11] VITALS: BP 109/74
--- NOTE | 2021-04-28 08:18 | NUR ---
Pain Clinic Assessment: 1. History of Osteoarthritis: DENIES History of Rheumatoid Arthritis: DENIES 2. Height: 6 ft. 2 in. 188.0 cm. Weight: 253.6 lb. oz. 115.032 kg. Patient's BMI: 32.5 3. Vital Signs: BP: 109/74 Pulse: 99 Resp: 20 Temp: 02 Sat: 100 ECG Mon: 4. Pain Intensity: 4 5. Fall Risk: Dizziness: N Needs help standing or walking: N Fallen in the last 3 months: N Fall risk comments: 6. Patient on Blood Thinner: None 7. History of Hypertension: Y 8. Opioid Therapy greater than 6 weeks: Y Opiate Contract Signed: 04/08/20 9. Risk Assessment Tool Provided: 1-LOW 10. Functional Assessment Tool: 11. Recreational Drug Use: Never Drug Type: Tobacco Use: Former Smoker Tobacco Type: Amount or Packs/day: How Many Years: Alcohol Use: Yes Frequency: Special Occasions Quant: 2
== END ==
LOC: PAIN 06:47
PROVIDERS: ATTEND Anesthesiology Pain Medicine
DX: M54.16 Radiculopathy, lumbar region (principal); I25.10 Atherosclerotic heart disease of native coronary artery without angina pectoris; I45.10 Unspecified right bundle-branch block; Z79.891 Long term (current) use of opiate analgesic; Z79.899 Other long term (current) drug therapy

== ENCOUNTER → 2021-05-07 | Outpatient (CLI) | payer OTHER, BC ==
[~2021-05-07] VITALS: Ht 188 cm; Wt 116.0 kg
[2021-05-07 08:38] VITALS: BP 114/73
--- NOTE | 2021-05-07 08:48 | NUR ---
Pain Clinic Assessment: 1. History of Osteoarthritis: DENIES History of Rheumatoid Arthritis: DENIES 2. Height: 6 ft. 2 in. 188.0 cm. Weight: 255.8 lb. oz. 116.030 kg. Patient's BMI: 32.8 3. Vital Signs: BP: 114/73 Pulse: 85 Resp: 16 Temp: 02 Sat: 94 ECG Mon: 4. Pain Intensity: 4 5. Fall Risk: Dizziness: N Needs help standing or walking: N Fallen in the last 3 months: N Fall risk comments: 6. Patient on Blood Thinner: None 7. History of Hypertension: Y 8. Opioid Therapy greater than 6 weeks: Y Opiate Contract Signed: 04/08/20 9. Risk Assessment Tool Provided: 1-LOW 10. Functional Assessment Tool: 11. Recreational Drug Use: Never Drug Type: Tobacco Use: Former Smoker Tobacco Type: Amount or Packs/day: How Many Years: Alcohol Use: Yes Frequency: Quant:
== END | disposition home or self-care (01) ==
LOC: PAIN 08:25
PROVIDERS: ATTEND Anesthesiology Pain Medicine
DX: M54.16 Radiculopathy, lumbar region (principal); G89.29 Other chronic pain; Z98.890 Other specified postprocedural states; Z79.899 Other long term (current) drug therapy; Z87.891 Personal history of nicotine dependence

== ENCOUNTER → 2021-07-09 | Outpatient (CLI) | payer OTHER, BC ==
[~2021-07-09] VITALS: Ht 188 cm; Wt 114.9 kg
[~2021-07-09] MED LIST changes: +AMITRIPTYLINE H25 M3 PO; +KEFLEX250 MG PO; +KEFLEX750 MG PO
[2021-07-09 08:25] VITALS: BP 132/81
[2021-07-09 08:29] VITALS: BP 132/81
--- NOTE | 2021-07-09 08:44 | NUR ---
Pain Clinic Assessment: 1. History of Osteoarthritis: DENIES History of Rheumatoid Arthritis: DENIES 2. Height: 6 ft. 2 in. 188.0 cm. Weight: 253.4 lb. oz. 114.942 kg. Patient's BMI: 32.5 3. Vital Signs: BP: 132/81 Pulse: 82 Resp: 16 Temp: 02 Sat: 99 ECG Mon: 4. Pain Intensity: 3 5. Fall Risk: Dizziness: N Needs help standing or walking: N Fallen in the last 3 months: N Fall risk comments: 6. Patient on Blood Thinner: None 7. History of Hypertension: Y 8. Opioid Therapy greater than 6 weeks: Y Opiate Contract Signed: 04/08/20 9. Risk Assessment Tool Provided: 1-LOW 10. Functional Assessment Tool: 11. Recreational Drug Use: Never Drug Type: Tobacco Use: Former Smoker Tobacco Type: Amount or Packs/day: How Many Years: Alcohol Use: Yes Frequency: Special Occasions Quant: 2
== END ==
LOC: PAIN 06:54
PROVIDERS: ATTEND Anesthesiology Pain Medicine
DX: M54.16 Radiculopathy, lumbar region (principal); I25.10 Atherosclerotic heart disease of native coronary artery without angina pectoris; I44.7 Left bundle-branch block, unspecified; K92.89 Other specified diseases of the digestive system; Z79.82 Long term (current) use of aspirin; Z79.899 Other long term (current) drug therapy; Z88.8 Allergy status to other drugs, medicaments and biological substances; Z79.891 Long term (current) use of opiate analgesic

== ENCOUNTER → 2021-09-10 | Outpatient (CLI) | payer OTHER, BC ==
[~2021-09-10] VITALS: Ht 188 cm; Wt 108.0 kg
[~2021-09-10] MED LIST changes: +AMITRIPTYLINE H50 M3 PO
[2021-09-10 08:09] VITALS: BP 145/87
--- NOTE | 2021-09-10 08:12 | NUR ---
Pain Clinic Assessment: 1. History of Osteoarthritis: DENIES History of Rheumatoid Arthritis: DENIES 2. Height: 6 ft. 2 in. 188.0 cm. Weight: 238.0 lb. oz. 107.956 kg. Patient's BMI: 30.5 3. Vital Signs: BP: 145/87 Pulse: 98 Resp: 18 Temp: 02 Sat: ECG Mon: 4. Pain Intensity: 3 5. Fall Risk: Dizziness: N Needs help standing or walking: N Fallen in the last 3 months: N Fall risk comments: 6. Patient on Blood Thinner: None 7. History of Hypertension: Y 8. Opioid Therapy greater than 6 weeks: Y Opiate Contract Signed: 04/08/20 9. Risk Assessment Tool Provided: 1-LOW 10. Functional Assessment Tool: 11. Recreational Drug Use: Never Drug Type: Tobacco Use: Former Smoker Tobacco Type: Amount or Packs/day: How Many Years: Alcohol Use: Yes Frequency: Quant:
== END ==
LOC: PAIN 07:38
PROVIDERS: ATTEND Anesthesiology Pain Medicine
DX: M54.16 Radiculopathy, lumbar region (principal); M79.652 Pain in left thigh; M79.672 Pain in left foot; M25.552 Pain in left hip; I10 Essential (primary) hypertension; I25.10 Atherosclerotic heart disease of native coronary artery without angina pectoris; I44.7 Left bundle-branch block, unspecified; Z79.82 Long term (current) use of aspirin; Z88.8 Allergy status to other drugs, medicaments and biological substances; Z79.899 Other long term (current) drug therapy